=== PATIENT | female | born 1990 | race Caucasian/White ===

== ENCOUNTER 2020-10-16 20:44 | Emergency (ER) | payer SELFPAY ==
[2020-10-16 20:45] VITALS: BP 140/99; PULSE 97; RESP 20; TEMP 36.8; O2SAT 98; BMI 52.3
--- NOTE | 2020-10-16 20:55 | XRR_ITS ---
PROCEDURE INFORMATION: Exam: XR Left Ankle Exam date and time: 10/16/2020 8:55 PM Age: 30 years old Clinical indication: Pain; Ankle; Left; Additional info: Injury TECHNIQUE: Imaging protocol: XR Left ankle. Views: 3 or more views. Total images: 3 COMPARISON: No relevant prior studies available. FINDINGS: Bones/joints: Minimally displaced transverse fractures through the neck of the 2nd, 3rd, and 4th distal metatarsals left foot with associated mild fibular angulation. Small avulsion fracture fragment head of the 4th metatarsal fibular aspect. Minimally displaced spiral fracture lateral malleolus. Ankle mortise appears intact. No visible distal left tibia fracture. Soft tissues: Soft tissue swelling. XR/XR ankle LT min 3V* [id number] IMPRESSION: 1. Fractures of the 2nd, 3rd, and 4th metatarsals as detailed in text above. 2. Minimally displaced spiral fracture lateral malleolus.
--- NOTE | 2020-10-16 20:55 | XRR_ITS ---
PROCEDURE INFORMATION: Exam: XR Left Foot Exam date and time: 10/16/2020 8:55 PM Age: 30 years old Clinical indication: Pain; Foot; Left; Additional info: Fall TECHNIQUE: Imaging protocol: XR Left foot. Views: 3 or more views. Total images: 3 COMPARISON: No relevant prior studies available. FINDINGS: Bones/joints: Minimally displaced transverse fractures through the neck of the 2nd, 3rd, and 4th distal metatarsals left foot with associated mild fibular angulation. Small avulsion fracture fragment head of the 4th metatarsal fibular aspect. Minimally displaced spiral fracture lateral malleolus. Soft tissues: Soft tissue swelling. XR/XR foot LT min 3V* [id number] IMPRESSION: 1. Fractures of the 2nd, 3rd, and 4th metatarsals as detailed in text above. 2. Minimally displaced spiral fracture lateral malleolus.
--- NOTE | 2020-10-16 20:58 | ED_ITS ---
HPI - Extremity Problem General: Chief complaint: Extremity Injury, Lower Stated complaint: LLE INJURY Time Seen by Provider: 10/16/20 20:53 Source: patient Mode of arrival: ambulatory Limitations: no limitations History of Present Illness: HPI Narrative: 30-year-old female who states she was walking outside and stepped in a hole there. She twisted her left ankle when this happened has had swelling and severe ankle pain since then. She rates her pain a 8 out of 10 and states that she is unable to put any weight on it. She denies any knee pain. Denies any her head denies any neck pain. Associated symptoms: Deny chest pain, fever(s) or rash Review of Systems Const: Denies: fever(s), chills, body aches or change in appetite Eyes: Denies: blurry vision or eye discomfort ENMT: Denies: throat pain or dental pain Card: Denies: chest pain Resp: Denies: dyspnea GI: Denies: abdominal pain, nausea, vomiting or diarrhea : Denies: dysuria Musc: Reports: extremity pain Skin/Breast: Denies: rash Neuro: Denies: headache(s) Psych: Denies: depression Daren/Lymph: Denies: easy bruising All/Imm: Denies: urticaria Physical Exam Const: COMMON NORMALS: no acute distress, patient oriented x3 and healthy appearing HENMT: COMMON NORMALS: normocephalic and atraumatic HEAD & SCALP: normocephalic and atraumatic Eye: COMMON NORMALS: Equal, round and reactive pupils present and EOMs intact bilaterally PUPIL: Yes Equal, round and reactive pupils present Neck/C-Spine: COMMON NORMALS: full ROM and supple Chest: COMMONS NORMALS: normal inspection of the chest and normal palpation of entire chest wall Resp: COMMON NORMALS: normal respiratory effort, No retractions, No use of accessory muscles and clear to auscultation bilaterally AUSCULTATION: clear to auscultation bilaterally Cardio: COMMON NORMALS: regular rate, regular rhythm and No murmurs present (Cardio) RATE: regular rate RHYTHM: regular rhythm GI: COMMON NORMALS: Normal to inspection, nondistended, normoactive bowel sounds present, Soft to palpation, non-tender and no masses PALPATION: Yes Soft to palpation Extremity: NARRATIVE EXTREMITY EXAM: Tenderness and swelling to left lateral ankle Neuro: COMMON NORMALS: patient oriented x3, moves all extremities and no focal motor deficits Psych: COMMON NORMALS: mental status grossly normal, Normal thought process present and cooperative THOUGHT PROCESS: Normal thought process present Skin: COMMON NORMALS: no rashes or lesions noted and no wounds GENERAL SKIN EXAM: no rashes or lesions noted Course Vital Signs: Vital signs: Vital Signs Temperature 98.3 F 10/16/20 20:45 Pulse Rate 97 10/16/20 20:45 Respiratory Rate 20 H 10/16/20 20:45 Blood Pressure 140/99 10/16/20 20:45 Pulse Oximetry 98 10/16/20 20:45 MDM - Extremity (Nontraumatic) MDM Narrative: Medical decision making narrative: Patient presents here with fracture to her foot along with ankle. Patient placed in a splint and is to use crutches as well. She is to be nonweightbearing. She is to follow-up with orthopedics. We will write her tramadol for home and she is stable for discharge. Imaging Data^: xr ankle l: Attestation: I personally reviewed and interpreted this imaging study as follows: My impression: distula fibula fx xr foot L: Attestation: I personally reviewed and interpreted this imaging study as follows: My impression: fracture to 2-4 distal metatarsals Discharge Plan Discharge Patient Disposition: Home Clinical Impression: Fracture of distal end of fibula Qualifiers: Encounter type: initial encounter Fracture type: closed Fracture morphology: unspecified fracture morphology Laterality: left Qualified Code(s): S82.832A - Other fracture of upper and lower end of left fibula, initial encounter for closed fracture Foot fracture, left Qualifiers: Encounter type: initial encounter Fracture type: closed Qualified Code(s): S92.902A - Unspecified fracture of left foot, initial encounter for closed fracture Condition: Stable Prescriptions: New tramadol 50 mg tablet 50 mg PO Q8H PRN (Reason: pain) Qty: 20 RF: 0 Discharge Orders: Discharge ED (Routine); Ordered 10/16/20 Ordered By: Song Healy Referrals: Shiraz Lyons MD [Physician] - 1-3 days Discharge Diet: Advance as tolerated Discharge Activity: Resume usual activity Patient Instructions: Ankle Fracture (ED), Foot Fracture in Adults (ED) Coding Level of Care Code ED [employer] Supervisor for g Fwd Exam Comprehensive
[2020-10-16 22:02] VITALS: RESP 18
[2020-10-16] MEDS: HYDROmorphone 1 mg/mL INJ 1 mL 0.5 MG IM (22:02)
[2020-10-16 22:04] VITALS: BP 150/97; PULSE 92; RESP 18; O2SAT 100
[2020-10-16 22:58] VITALS: BP 151/101; PULSE 92; RESP 18; O2SAT 96
--- NOTE | 2020-10-18 09:04 | PC.SOCIAL ---
Notified Mallory at Ortho regarding referral from Dr Healy for ankle and foot fx for [place]. She retrieved information and will call patient once reviewed for appointment.
--- NOTE | 2020-10-30 07:43 | DCPLANNER ---
Patient had a follow up appointment scheduled for 10.17.20 at [facility] with Dr. Lyons - patient did attend appointment.
== END 2020-10-16 22:49 | disposition home or self-care (01) ==
PROVIDERS: Emergency Provider Emergency Medicine
DX: S82.832A Other fracture of upper and lower end of left fibula, initial encounter for closed fracture (principal); S92.325A Nondisplaced fracture of second metatarsal bone, left foot, initial encounter for closed fracture; S92.335A Nondisplaced fracture of third metatarsal bone, left foot, initial encounter for closed fracture; S92.345A Nondisplaced fracture of fourth metatarsal bone, left foot, initial encounter for closed fracture; X50.1XXA Overexertion from prolonged static or awkward postures, initial encounter
CPT/HCPCS: 29515; 73610; 73630; 96372; 99283; E0114; J1170

== ENCOUNTER 2020-10-17 10:28 | Outpatient (CLI) | payer SELFPAY | END 2020-10-17 10:29 | disposition home or self-care (01) | LOC: SPT 10-18 10:29 | PROVIDERS: Visit Provider Orthopaedic Surgery | DX: Z46.89 Encounter for fitting and adjustment of other specified devices (principal); S92.342D Displaced fracture of fourth metatarsal bone, left foot, subsequent encounter for fracture with routine healing; S92.332D Displaced fracture of third metatarsal bone, left foot, subsequent encounter for fracture with routine healing; S92.322D Displaced fracture of second metatarsal bone, left foot, subsequent encounter for fracture with routine healing; S82.832D Other fracture of upper and lower end of left fibula, subsequent encounter for closed fracture with routine healing; X58.XXXD Exposure to other specified factors, subsequent encounter | CPT/HCPCS: 97760; L4361 ==

== ENCOUNTER → 2020-10-17 14:19 | Outpatient (BNVA) | payer SELFPAY | PROVIDERS: Referring Provider Emergency Medicine; Visit Provider Orthopaedic Surgery | DX: S82.832A Other fracture of upper and lower end of left fibula, initial encounter for closed fracture (principal); X58.XXXA Exposure to other specified factors, initial encounter | CPT/HCPCS: 73600 ==

== ENCOUNTER → 2020-10-24 13:23 | Outpatient (BNVA) | payer SELFPAY | PROVIDERS: Visit Provider Orthopaedic Surgery | DX: S82.832A Other fracture of upper and lower end of left fibula, initial encounter for closed fracture (principal); S92.322A Displaced fracture of second metatarsal bone, left foot, initial encounter for closed fracture; S92.332A Displaced fracture of third metatarsal bone, left foot, initial encounter for closed fracture; S92.342A Displaced fracture of fourth metatarsal bone, left foot, initial encounter for closed fracture; X58.XXXA Exposure to other specified factors, initial encounter | CPT/HCPCS: 73610; 73630 ==

== ENCOUNTER → 2020-11-23 10:19 | Outpatient (BNVA) | payer MEDICAID, SELFPAY | PROVIDERS: Visit Provider Orthopaedic Surgery | DX: S92.332A Displaced fracture of third metatarsal bone, left foot, initial encounter for closed fracture (principal); S92.342A Displaced fracture of fourth metatarsal bone, left foot, initial encounter for closed fracture; S92.322A Displaced fracture of second metatarsal bone, left foot, initial encounter for closed fracture; S82.832A Other fracture of upper and lower end of left fibula, initial encounter for closed fracture; X58.XXXA Exposure to other specified factors, initial encounter | CPT/HCPCS: 73610; 73630 ==

== ENCOUNTER → 2020-12-18 10:14 | Outpatient (BNVA) | payer MEDICAID, SELFPAY | PROVIDERS: Visit Provider Orthopaedic Surgery | DX: S92.332A Displaced fracture of third metatarsal bone, left foot, initial encounter for closed fracture (principal); S92.342A Displaced fracture of fourth metatarsal bone, left foot, initial encounter for closed fracture; S92.322A Displaced fracture of second metatarsal bone, left foot, initial encounter for closed fracture; S82.832A Other fracture of upper and lower end of left fibula, initial encounter for closed fracture; X58.XXXA Exposure to other specified factors, initial encounter | CPT/HCPCS: 73610; 73630 ==

== ENCOUNTER → 2021-01-09 09:22 | Outpatient (BNVA) | payer MEDICAID, SELFPAY | PROVIDERS: Visit Provider Orthopaedic Surgery | DX: S92.342A Displaced fracture of fourth metatarsal bone, left foot, initial encounter for closed fracture (principal); S92.332A Displaced fracture of third metatarsal bone, left foot, initial encounter for closed fracture; S92.322A Displaced fracture of second metatarsal bone, left foot, initial encounter for closed fracture; X58.XXXA Exposure to other specified factors, initial encounter | CPT/HCPCS: 73610; 73630 ==

== ENCOUNTER 2021-06-18 11:26 | Outpatient (CLI) | payer BC, SELFPAY ==
--- NOTE | 2021-06-18 11:35 | XR_ITS ---
WS: [id number] Exam: XR knee LT 4V [id number] Date/Time of Exam: 06/18/2021 11:35 AM Reason For Exam: PAIN IN L KNEE No fracture or dislocation noted. Articular relationships are intact. No joint effusion. XR/XR knee LT 4V [id number] Impression: Normal left knee Kellgren-Werner Classification:
--- NOTE | 2021-06-18 11:35 | XR_ITS ---
WS: [id number] Exam: XR ankle LT min 3V* [id number] Date/Time of Exam: 06/18/2021 11:35 AM Reason For Exam: L ANKLE PAIN/FX OF L LOWER LEG Comparison 01/09/2021 No acute fracture or dislocation. Healed fracture of the lower fibula noted. The ankle mortise appear s normal. Normal soft tissues. XR/XR ankle LT min 3V* [id number] IMPRESSION: 1. Healed fracture of the lower fibula in anatomic position.
== END 2021-06-18 11:27 | disposition home or self-care (01) ==
LOC: RAD 11:34
PROVIDERS: PCP Family Medicine; Visit Provider Family Medicine
DX: M25.562 Pain in left knee (principal); M25.572 Pain in left ankle and joints of left foot
CPT/HCPCS: 73564; 73610

== ENCOUNTER 2021-10-24 06:00 | Outpatient (RCR) | payer OTHER, SELFPAY | END 2021-10-24 23:55 | disposition home or self-care (01) | LOC: SPT 06:00 | PROVIDERS: PCP Family Medicine; Referring Provider Family Medicine; Visit Provider Family Medicine | DX: S39.012D Strain of muscle, fascia and tendon of lower back, subsequent encounter (principal); X58.XXXD Exposure to other specified factors, subsequent encounter | CPT/HCPCS: 97161 ==

== ENCOUNTER 2021-10-25 06:00 | Outpatient (RCR) | payer OTHER, SELFPAY | END 2021-11-24 23:59 | disposition home or self-care (01) | LOC: SPT 06:00 | PROVIDERS: PCP Family Medicine; Referring Provider Family Medicine; Visit Provider Family Medicine | DX: S39.012A Strain of muscle, fascia and tendon of lower back, initial encounter (principal); X58.XXXA Exposure to other specified factors, initial encounter | CPT/HCPCS: 97110 ==

== ENCOUNTER 2021-11-07 14:28 | Outpatient (CLI) | payer OTHER, SELFPAY ==
--- NOTE | 2021-11-07 15:00 | CT_ITS ---
WS: [id number] CT LUMBAR SPINE, noncontrast. HISTORY: continued pain w rest and analgesics from low back injury TECHNIQUE: Contiguous 2.5 mm axial imaging are performed. Sagittal and coronal reformats are submitte d and reviewed. All CT scans at [facility] use at least one of these dose optimization techni ques: automated exposure control; mA and/or kV adjustment per patient size (includes targeted exams w here dose is matched to clinical indication); or iterative reconstruction. IV contrast: None DLP: 1466.47 mGy.cm COMPARISON: None available. Posterior lumbar alignment is normal. No fractures. Disc spaces are well-maintained. No pars defects. L1-2: Normal. L2-3: Normal. L3-4: Mild annular disc bulging. Mild ligamentum flavum hypertrophy. Very mild disc encroachment into the foramina. No high-grade stenosis. L4-5: Moderate annular disc bulge with a central disc protrusion contacting the ventral thecal sac. M ild bilateral foraminal stenosis. L5-S1: Mild disc bulging there is a very tiny LEFT foraminal disc protrusion which may be contacting the LEFT L5 nerve root. Mild LEFT foraminal stenosis. SI joints are normal. No retroperitoneal abnormality identified. CT/CT lumbar spine wo con* [id number] IMPRESSION: Accident LEFT L5 nerve root. Very mild LEFT foraminal narrowing. 1. No lumbar spine fracture or significant disc disease. 2. Mild disc bulging with a central protrusion at L4-5 resulting in very mild foraminal stenosis. 3. Mild foraminal stenosis at L3-4 due to disc disease predominantly. 4. Very small LEFT foraminal disc protrusion causing mild stenosis and does ap pear to be contacting the LEFT L5 nerve root.
== END 2021-11-07 14:29 | disposition home or self-care (01) ==
LOC: RAD 14:28
PROVIDERS: PCP Family Medicine; Visit Provider Family Medicine
DX: G89.29 Other chronic pain (principal); M51.16 Intervertebral disc disorders with radiculopathy, lumbar region; M79.605 Pain in left leg; S39.012A Strain of muscle, fascia and tendon of lower back, initial encounter; M51.26 Other intervertebral disc displacement, lumbar region; M48.061 Spinal stenosis, lumbar region without neurogenic claudication
CPT/HCPCS: 72131

== ENCOUNTER → 2021-11-14 09:47 | Outpatient (BNVA) | payer OTHER, SELFPAY | PROVIDERS: PCP Family Medicine; Referring Provider Family Medicine; Visit Provider Orthopaedic Surgery | DX: M51.16 Intervertebral disc disorders with radiculopathy, lumbar region (principal); M54.50 Low back pain, unspecified | CPT/HCPCS: 72110 ==

== ENCOUNTER 2021-11-27 08:44 | Outpatient (CLI) | payer OTHER, SELFPAY ==
--- NOTE | 2021-11-27 08:45 | MR_ITS ---
WS: [id number] MRI LUMBAR SPINE NONCONTRAST HISTORY: M51.16 - Intervertebral disc disorders with radiculopathy... COMPARISON: None available. TECHNIQUE: Sagittal and axial multisequence imaging is submitted. Normal lumbar alignment with no compression fractures or marrow edema. Mild disc desiccation at L4-5. Vertebral body heights are normal. No fracture or marrow edema. Conus terminates normally at L1. Mild degenerative disc disease at T10-11 no cord compression. L1-L2: Normal. L2-L3: No stenosis. Mild ligamentum flavum and facet arthritis. L3-L4: Mild ligamentum flavum and facet arthritis. No stenosis. L4-L5: Mild annular disc bulge with a small central disc protrusion. Disc protrusion does not contact the nerve roots. Mild ligamentum flavum and facet arthritis. There is very mild narrowing of the dereje ral foramen. L5-S1: Very small central disc protrusion. Mild facet joint arthritis. Mild bilateral foraminal narro wing. Slightly greater encroachment upon the proximal LEFT exiting L5 nerve root. The recently descri bed possible LEFT foraminal disc protrusion that was small and described on the CT of 11/07/2021 is no t evident by MRI. Visualized paravertebral soft tissues are negative. MR/MR lumbar spine wo con* [id number] IMPRESSION: 1. No high-grade central or foraminal stenosis. 2. Small central disc protrusion with annular disc bulge at L4-5. No contact o n the nerve roots. 3. Mild bilateral foraminal narrowing at L4-5 and L5-S1. The most significant encroachment is upon the exiting proximal LEFT L5 nerve root. 4. No fractures.
== END 2021-11-27 08:45 | disposition home or self-care (01) ==
LOC: RAD 08:44
PROVIDERS: PCP Family Medicine; Visit Provider Orthopaedic Surgery
DX: M51.16 Intervertebral disc disorders with radiculopathy, lumbar region (principal); S39.012A Strain of muscle, fascia and tendon of lower back, initial encounter; X58.XXXA Exposure to other specified factors, initial encounter; M51.26 Other intervertebral disc displacement, lumbar region
CPT/HCPCS: 72148

== ENCOUNTER 2022-03-13 18:41 | Emergency (ER) | payer OTHER, BC, MEDICAID, SELFPAY ==
--- NOTE | 2022-03-13 18:45 | XRR_ITS ---
PROCEDURE INFORMATION: Exam: XR Right Foot Exam date and time: 03/13/2022 7:06 PM Age: 31 years old Clinical indication: Pain; Foot; Right; Additional info: Injury TECHNIQUE: Imaging protocol: Radiologic exam of the Right foot. Views: 3 or more views. COMPARISON: No relevant prior studies available. FINDINGS: Bones/joints: Normal. Soft tissues: Normal. XR/XR foot RT min 3V* [id number] IMPRESSION: No acute findings.
[2022-03-13 19:13] VITALS: BMI 52.7
[2022-03-13 19:18] VITALS: BP 147/89; PULSE 93; RESP 16; TEMP 36.6; O2SAT 98
--- NOTE | 2022-03-13 19:24 | XRR_ITS ---
PROCEDURE INFORMATION: Exam: XR Right Ankle Exam date and time: 03/13/2022 7:32 PM Age: 31 years old Clinical indication: Pain; Ankle; Right; Additional info: Injury TECHNIQUE: Imaging protocol: Radiologic exam of the Right ankle. Views: 3 or more views. COMPARISON: CR (LOW EXM, ) 03/13/2022 7:06 PM FINDINGS: Bones/joints: Normal. Soft tissues: Soft tissue swelling around the ankle. XR/XR ankle RT min 3V* [id number] IMPRESSION: Negative for acute osseous injury.
--- NOTE | 2022-03-13 19:29 | ED_ITS ---
HPI - Extremity Problem General: Chief complaint: Extremity Injury, Lower Stated complaint: Right foot injury Time Seen by Provider: 03/13/22 19:05 Mode of arrival: ambulatory Limitations: no limitations History of Present Illness: 31-year-old female who states that she had rolled her right ankle this morning. She states that she is got swelling to right lateral ankle along with pain in that ankle some slight pain in her foot states she is unable to bear any weight her pains improved with rest rates her pain currently a 4 out of 10 denies any other injury denies any pain. Associated symptoms: Deny chest pain, fever(s) or rash Review of Systems Const: Denies: fever(s), chills, body aches or change in appetite Eyes: Denies: blurry vision or eye discomfort ENMT: Denies: throat pain or dental pain Card: Denies: chest pain Resp: Denies: dyspnea GI: Denies: abdominal pain, nausea, vomiting or diarrhea : Denies: dysuria Musc: Reports: extremity pain Skin/Breast: Denies: rash Neuro: Denies: headache(s) Psych: Denies: depression Daren/Lymph: Denies: easy bruising All/Imm: Denies: urticaria PFSH ED PFSH: Medical History Ankle pain Chronic pain of left lower extremity Fracture of fourth metatarsal bone of left foot Fracture of third metatarsal bone of left foot Low back strain Psychiatric care Social History Smoking and tobacco status: current every day smoker cigarettes Packs smoked per day: 0.5 Years cigarettes smoked: 16 Quit status (tobacco): has tried quititng Number of times tried to quit tobacco: 5 Second hand smoke exposure: Yes Smoking risk assessment/counseling performed?: No Alcohol intake: current Alcohol intake frequency: holidays/special occasions only Alcohol type: other Desire information about alcohol rehabilitation?: No Counseling given: No Desire information about substance/drug rehabilitation?: No Counseling given: No Female Reproductive History: Date of last menstrual period: 03/12/22 Physical Exam Const: COMMON NORMALS: no acute distress, patient oriented x3 and healthy appearing HENMT: COMMON NORMALS: normocephalic and atraumatic HEAD & SCALP: normocephalic and atraumatic Eye: COMMON NORMALS: conjunctivae normal CONJUNCTIVA: Yes conjunctivae normal Neck/C-Spine: COMMON NORMALS: full ROM and supple Chest: COMMONS NORMALS: normal inspection of the chest Resp: COMMON NORMALS: normal respiratory effort Cardio: COMMON NORMALS: regular rate, regular rhythm and No murmurs present (Cardio) RATE: regular rate RHYTHM: regular rhythm GI: INSPECTION: Yes normal to inspection Extremity: NARRATIVE EXTREMITY EXAM: Tenderness over right lateral ankle with swelling distal pulses intact no obvious deformity Neuro: COMMON NORMALS: patient oriented x3, moves all extremities and no focal motor deficits Psych: COMMON NORMALS: mental status grossly normal, Normal thought process present and cooperative THOUGHT PROCESS: Normal thought process present Skin: COMMON NORMALS: no rashes or lesions noted and no wounds GENERAL SKIN EXAM: no rashes or lesions noted Course Vital Signs: Vital signs: Vital Signs Temperature 97.9 F 03/13/22 19:18 Pulse Rate 93 03/13/22 19:18 Respiratory Rate 16 03/13/22 19:18 Blood Pressure 147/89 03/13/22 19:18 Pulse Oximetry 98 03/13/22 19:18 Oxygen Delivery Me thod 03/13/22 19:18 MDM - Extremity (Nontraumatic) Medical Decision Making Patient presents here with an ankle sprain x-ray shows no signs of fracture we will immobilize give her crutches have her follow-up with podiatry she is return if worsening she understands agrees to plan. Lab Data Radiology Impressions Foot X-Ray 03/13/22 18:45 IMPRESSION: No acute findings. Discharge Plan Discharge Patient Disposition: Home Clinical Impression: Ankle sprain and strain Condition: Stable Prescriptions: New Naprosyn 500 mg tablet 500 mg PO BID PRN (Reason: pain) Qty: 20 0RF No Action medroxyprogesterone [Depo-SubQ provera 104] SUBCUT .q 3 months gabapentin 300 mg capsule See Rx Instructions .ROUTE .COMPLEX Qty: 60 1RF Dose Instruction: TAKE ONE CAPSULE BY MOUTH TWICE DAILY FOR chronic pain Rx Instructions: TAKE ONE CAPSULE BY MOUTH TWICE DAILY FOR chronic pain bupivacaine (PF) 0.25 % (2.5 mg/mL) solution 2 ml Infiltration ONCE Qty: 1 0RF dexamethasone sodium phos (PF) 10 mg/mL solution 8 mg Infiltration ONCE Qty: 0.8 0RF acetaminophen [Tylenol Extra Strength] 500 mg tablet 1,000 mg PO Q6H PRN duloxetine 60 mg capsule,delayed release(DR/EC) 60 mg PO DAILY Qty: 60 2RF Rx Instructions: To be taken with 30 mg for total of 90 mg. trazodone 50 mg tablet 100 mg PO .HS PRN (Reason: insomnia) Qty: 60 2RF duloxetine 30 mg capsule,delayed release(DR/EC) 30 mg PO DAILY Qty: 30 2RF ibuprofen 200 mg tablet 800 mg PO DAILY PRN bupivacaine (PF) 0.25 % (2.5 mg/mL) solution 2 ml Infiltration ONCE Qty: 1 0RF dexamethasone sodium phos (PF) 10 mg/mL solution 8 mg Infiltration ONCE Qty: 0.8 0RF Discharge Orders: Discharge ED (Routine); Ordered 03/13/22 Ordered By: Song Healy Referrals: Miladis Diaz DO [Primary Care Provider] - Sriram Zamudio DPM [Physician] - 1-3 days Discharge Diet: Advance as tolerated Discharge Activity: Use walker/crutches as instructed Patient Instructions: Ankle Sprain (ED) Coding Level of Care Code ED [employer] Farmer for Yeisong Fwd Exam Comprehensive
[2022-03-13] MEDS: HYDROcodone-acetaminophen 5-325 mg Tablet 1 TAB PO (19:47)
--- NOTE | 2022-03-14 09:04 | PC.SOCIAL ---
Addendum entered by Majo Leggett 04/08/22 12:08: Patient had a follow up appointment with ortho - patient did attend appointment. Original Note: Ortho Referral Referral sent to ortho for scheduling. Clinic to contact patient with appt date/time.
== END 2022-03-13 20:06 | disposition home or self-care (01) ==
PROVIDERS: Emergency Provider Emergency Medicine; PCP Family Medicine
DX: S93.401A Sprain of unspecified ligament of right ankle, initial encounter (principal); S96.911A Strain of unspecified muscle and tendon at ankle and foot level, right foot, initial encounter; X50.1XXA Overexertion from prolonged static or awkward postures, initial encounter; F17.210 Nicotine dependence, cigarettes, uncomplicated
CPT/HCPCS: 29515; 73610; 73630; 99283; E0114

== ENCOUNTER 2022-03-18 15:49 | Outpatient (CLI) | payer OTHER, BC, MEDICAID, SELFPAY | END 2022-03-18 15:50 | disposition home or self-care (01) | LOC: SPT 15:49 | PROVIDERS: PCP Family Medicine; Visit Provider Podiatrist Foot & Ankle Surgery | DX: Z46.89 Encounter for fitting and adjustment of other specified devices (principal); S99.911D Unspecified injury of right ankle, subsequent encounter; X58.XXXD Exposure to other specified factors, subsequent encounter | CPT/HCPCS: 97760; L4361 ==

== ENCOUNTER 2022-04-08 15:02 | Outpatient (CLI) | payer OTHER, BC, MEDICAID, SELFPAY | END 2022-04-08 15:03 | disposition home or self-care (01) | LOC: SPT 15:03 | PROVIDERS: PCP Family Medicine; Visit Provider Podiatrist Foot & Ankle Surgery | DX: Z46.89 Encounter for fitting and adjustment of other specified devices (principal); M25.571 Pain in right ankle and joints of right foot; M76.71 Peroneal tendinitis, right leg; S93.401D Sprain of unspecified ligament of right ankle, subsequent encounter; X58.XXXD Exposure to other specified factors, subsequent encounter | CPT/HCPCS: 97760; L1902 ==

== ENCOUNTER 2022-05-29 07:50 | Outpatient (CLI) | payer OTHER, BC, MEDICAID, SELFPAY ==
--- NOTE | 2022-05-29 08:00 | MR_ITS ---
WS: [id number] EXAMINATION: MR ankle RT wo/w con [id number] ORDER DATE: 05/29/2022 8:12 AM COMPARISON: None. HISTORY: right ankle pain CONTRAST: None. TECHNIQUE: Axial proton density fat sat, axial T1, sagittal proton density, sagittal STIR, coronal T2 fat sat, and coronal T1 sequences performed. After contrast, axial T1 fat sat, coronal T1 fat sat, and sagittal T1 fat sat were performed. FINDINGS: Normal anatomic alignment. Normal ankle mortise. Talar dome is normal in appearance. No evidence of c ontusion or AVN talar dome. Normal calcaneus. Mild soft tissue edema about the lateral malleolus. Eric ma involving the tip of the lateral malleolus compatible with bone marrow contusion. No visualized di splaced or avulsed fragments. Suspected tiny nondisplaced vertically oriented hairline fracture with tiny visualized fracture line. Small amount of tenosynovitis along the peroneal tendons appear intact . Small amount of tendinopathy along the peroneal longus at the peroneal tubercle. Small amount of te nosynovitis along the tibialis posterior. Normal medial malleolus. Deltoid ligament appears intact. ATF appears intact. No widening of the synd esmosis. Tibial plafond is normal. No osteochondral defects. Distal Achilles is normal in appearance. 5th metatarsal base is normal in appearance. Normal navicula r and cuneiforms. Small joint effusion. MR/MR ankle RT wo/w con [id number] IMPRESSION: 1. Soft tissue edema overlying the lateral malleolus with bone marrow edema an d suspected tiny nondisplaced hairline fracture. No avulsion fractures. 2. Tenosynovitis along the traversing peroneal tendons. Small amount of tendin opathy in the peroneal longus. 3. Normal deltoid ligament and ATF. 4. Small joint effusion.
[2022-05-29] MEDS: gadobenate dimeglumine 20 mL vial IV (08:53)
== END 2022-05-29 07:51 | disposition home or self-care (01) ==
LOC: RAD 07:51
PROVIDERS: PCP Family Medicine; Visit Provider Podiatrist Foot & Ankle Surgery
DX: M76.71 Peroneal tendinitis, right leg (principal); M25.571 Pain in right ankle and joints of right foot
CPT/HCPCS: 73723; A9577

== ENCOUNTER 2022-07-14 16:26 | Emergency (ER) | payer BC, MEDICAID, SELFPAY ==
[2022-07-14 16:57] VITALS: BP 159/87; PULSE 79; RESP 16; TEMP 36.7; O2SAT 97; BMI 53.2
--- NOTE | 2022-07-14 17:45 | USR_ITS ---
PROCEDURE INFORMATION: Exam: US Pelvis Complete, Transabdominal and US Pelvis, Transvaginal Exam date and time: 07/14/2022 6:09 PM Age: 31 years old Clinical indication: Pelvic pain; Patient HX: Heavy vaginal bleeding with bilateral pelvic cramping x 3-4 days. Lmp = 06/30/22; Additional info: Heavy vaginal bleeding and cramping pain TECHNIQUE: Imaging protocol: Real-time complete transabdominal and transvaginal pelvic ultrasound with image documentation. Transvaginal imaging was used for better evaluation of the endometrium, adnexa, and/or cervix. COMPARISON: CT lumbar spine wo con* [id number] 11/07/2021 3:36 PM FINDINGS: Uterus: The uterus measures 6.6 x 4.0 x 4.4 cm. No myometrial abnormality. The endometrium is unremarkable. Endometrium measures 3.2 mm. Cervix: Fluid in the cervical canal. Right ovary/adnexa: The right ovary measures 2.5 x 3.0 x 2.0 cm. There is flow in the right ovary on Doppler imaging. Dominant follicle in the right ovary measuring 1.4 cm. Left ovary/adnexa: The left ovary measures 3.1 x 1.8 x 3.8 cm. There is flow in the left ovary on Doppler imaging. Dominant follicle in the left ovary measuring 2.0 cm. Dominant follicle in the left ovary. Intraperitoneal space: No free fluid in the pelvis. Urinary bladder: The bladder is incompletely filled, which can limit evaluation. No focal abnormality in the bladder however. US/US pelvic complete* [id number] IMPRESSION: 1. Fluid in the cervical canal. 2. Dominant follicles in both right and left ovaries.
--- NOTE | 2022-07-14 17:47 | W.ED.FEMALGU ---
HPI - Female Genitourinary General: Chief complaint: Vaginal Bleeding Stated complaint: heavy vaginal bleeding Time Seen by Provider: 07/14/22 17:27 History of Present Illness: Patient is a 31-year-old female who comes to the ED with vaginal bleeding and abdominal cramping. Symptoms started approximately 2 days ago. This is a chronic problem for patient. She has a history of abnormal menstrual periods and has been working with her PCP for over 10 years to try and help make them more regular. She is currently on control. She states that she will have multiple periods in a month sometimes and then go months without a menstrual period or have vaginal bleeding for weeks. Today patient says her abdominal cramping pain is in her lower abdomen and she rates it a 9 out of 10. She also is having heavy bleeding today and states she goes through 1-2 heavy pads every hour. She also endorses having nausea, lightheadedness, headache and feels dehydrated. Patient states that she would really like a referral to a women's health specialist denies any fevers, dysuria or emesis. Associated symptoms: Reports headache(s) and nausea; Deny abdominal pain Date of Last Menstrual Period: 06/30/22 Review of Systems Const: Denies: fever(s), chills or fatigue Eyes: Denies: change in vision or eye discomfort ENMT: Denies: throat pain, odynophagia, nasal discharge or nasal congestion Card: Reports: lightheadedness; Denies: chest pain, palpitations, edema, swelling of feet/ankles, dyspnea on exertion or orthopnea Resp: Denies: dyspnea, productive cough or non-productive cough GI: Reports: nausea and GI cramping; Denies: abdominal pain, vomiting, diarrhea, constipation or hematochezia : Reports: vaginal bleeding and pelvic pain; Denies: flank pain, dysuria or hematuria Musc: Denies: neck pain, back pain or extremity swelling Skin/Breast: Denies: rash or new lesions Neuro: Reports: headache(s); Denies: numbness in extremities or weakness in extremities PFSH ED PFSH: Medical History Ankle pain Chronic pain of left lower extremity Fracture of fourth metatarsal bone of left foot Fracture of third metatarsal bone of left foot Low back strain Psychiatric care Social History Smoking and tobacco status: current every day smoker cigarettes Packs smoked per day: 0.5 Years cigarettes smoked: 16 Quit status (tobacco): has tried quititng Number of times tried to quit tobacco: 5 Second hand smoke exposure: Yes Smoking risk assessment/counseling performed?: No Alcohol intake: current Alcohol intake frequency: holidays/special occasions only Alcohol type: other Desire information about alcohol rehabilitation?: No Counseling given: No Desire information about substance/drug rehabilitation?: No Counseling given: No Female Reproductive History: Date of last menstrual period: 06/30/22 Physical Exam Const: COMMON NORMALS: no acute distress, patient oriented x3 and alert GENERAL APPEARANCE: cooperative HENMT: COMMON NORMALS: normocephalic HEAD & SCALP: normocephalic MOUTH: Normal oral and palatal mucosa present THROAT: posterior oropharynx normal and uvula midline Neck/C-Spine: COMMON NORMALS: supple GENERAL: Yes normal visual inspection Resp: COMMON NORMALS: normal respiratory effort, No retractions, No use of accessory muscles and clear to auscultation bilaterally AUSCULTATION: clear to auscultation bilaterally Cardio: COMMON NORMALS: regular rate, regular rhythm, S1 normal heart sound present, S2 normal heart sound present, No gallops present (Cardio), No clicks present (Cardio), No murmurs present (Cardio) and Peripheral pulses 2+ throughout RATE: regular rate RHYTHM: regular rhythm HEART SOUNDS: S1 normal heart sound present and S2 normal heart sound present PERIPHERAL PULSES: Peripheral pulses 2+ throughout GI: COMMON NORMALS: Normal to inspection, nondistended, normoactive bowel sounds present, Soft to palpation, non-tender and no masses PALPATION: Yes Soft to palpation : COMMON NORMALS: Yes no CVA tenderness BLADDER/KIDNEY EXAM: Yes no CVA tenderness Back/Pelvis: COMMON NORMALS: no CVA tenderness Extremity: COMMON NORMALS: normal to inspection Neuro: COMMON NORMALS: patient oriented x3 SENSORIUM/ORIENTATION: Yes alert GAIT: Yes Normal gait present Skin: GENERAL SKIN EXAM: dry skin Course Vital Signs: Vital signs: Vital Signs Temperature 98.0 F 07/14/22 16:57 Pulse Rate 79 07/14/22 16:57 Respiratory Rate 16 07/14/22 16:57 Blood Pressure 159/87 07/14/22 16:57 Pulse Oximetry 97 03/20/23 16:57 Oxygen Delivery Me thod 07/14/22 16:57 MDM - Female Medical Decision Making Patient is a 31-year-old female comes to the ED with heavy vaginal bleeding. This is a chronic issue for patient and she has been dealing with irregular periods with heavy bleeding for the past 10+ years. Her main reason for coming here to the ED was to get a referral to SPEECH THERAPIST TECHNICIAN specialist. vitals stable. Patient appears nontoxic in no acute distress. Exam is benign. Patient's labs are unremarkable and her hemoglobin is 14.8. hCG negative. Pelvic ultrasound was unremarkable. Patient was stable for discharge home and diagnosed with menorrhagia. I placed order with case management for patient referred to an SPEECH THERAPIST TECHNICIAN specialist for follow-up. Return to ED precautions given. Patient understood and agreed with plan. Lab Data I reviewed the patient's lab results. 07/14/22 17:30 07/14/22 17:30 Radiology Impressions Pelvis Ultrasound 07/14/22 17:45 IMPRESSION: 1. Fluid in the cervical canal. 2. Dominant follicles in both right and left ovaries. Laboratory Results WBC 10.0 10^3/uL (4.0-10.0) 07/14/22 17:30 RBC 4.99 10^6/uL (4.1-5.3) 07/14/22 17:30 Hgb 14.8 g/dL (11.5-15.3) 07/14/22 17:30 Hct 44.0 % (37.0-47.0) 07/14/22 17: MCV 88.2 fl (81-99) 07/14/22 17:30 MCH 29.7 pg (28.0-34.0) 07/14/22 17:30 MCHC 33.6 g/dL (30.0-36.0) 07/14/22 17:30 RDW 12.3 % (12.1-15.1) 07/14/22 17:30 Plt Count 365 10^3/cmm (130-400) 07/14/22 17:30 MPV 10.7 fL (7.4-10.4) H 07/14/22 17:30 Neut % (Auto) 64.0 % 07/14/22 17:30 Lymph % (Auto) 28.3 % 07/14/22 17:30 [place] % (Auto) 6.2 % 07/14/22 17:30 Eos % (Auto) 0.9 % 07/14/22 17:30 Baso % (Auto) 0.3 % 07/14/22 17:30 Neut # (Auto) 6.39 10^3/uL (1.8-7.7) 07/14/22 17:30 Lymph # (Auto) 2.8 10^3/uL (0.8-4.8) 07/14/22 17:30 [place] # (Auto) 0.6 10^3/uL (0.2-0.9) 07/14/22 17:30 Eos # (Auto) 0.1 10^3/uL (0.0-0.8) 07/14/22 17: Baso # (Auto) 0.0 10^3/uL (0.0-0.1) 07/14/22 17: Nucleated RBC % (auto) 0 % 07/14/22 17: Nucleated RBCs # 0.0 /100WBC 07/14/22 17:30 Sodium 140 mmol/L (136-145) 07/14/22 17:30 Potassium 4.0 mmol/L (3.5-5.1) 07/14/22 17:30 Chloride 104 mmol/L (98-107) 07/14/22 17:30 Carbon Dioxide 24 mmol/L (22-29) 07/14/22 17:30 Anion Gap 16.0 (5-19) 07/14/22 17:30 BUN 7 mg/dL (6-20) 07/14/22 17:30 Creatinine 0.7 mg/dL (0.5-0.9) 07/14/22 17:30 GFR Calculation 98.9 mL/min (90-130) 07/14/22 17:30 Glucose 88 mg/dL (65-115) 07/14/22 17: Calculated Osmolality 287 mOsm/kg (285-295) 07/14/22 17:30 Calcium 9.1 mg/dL (8.5-10.5) 07/14/22 17:30 Total Bilirubin 0.2 mg/dL (0.15-1.2) 07/14/22 17:30 AST 14 U/L (0-32) 07/14/22 17:30 ALT 19 U/L (0-33) 07/14/22 17:30 Alkaline Phosphatase 76 U/L (35-105) 07/14/22 17:30 Total Protein 7.3 g/dL (6.6-8.7) 07/14/22 17:30 Albumin 4.5 g/dL (3.5-5.2) 07/14/22 17:30 Globulin 2.8 g/dL (1.3-4.6) 07/14/22 17:30 HCG, Qual Negative (Negative) 07/14/22 17:30 Discharge Plan Discharge Patient Disposition: Home Clinical Impression: Menorrhagia with irregular cycle Condition: Stable Prescriptions: New ondansetron 4 mg tablet,disintegrating 4 mg PO Q8H PRN (Reason: nausea and vomiting) Qty: 12 0RF No Action medroxyprogesterone [Depo-SubQ provera 104] SUBCUT .q 3 months gabapentin 300 mg capsule See Rx Instructions .ROUTE .COMPLEX Qty: 60 1RF Dose Instruction: TAKE ONE CAPSULE BY MOUTH TWICE DAILY FOR chronic pain Rx Instructions: TAKE ONE CAPSULE BY MOUTH TWICE DAILY FOR chronic pain acetaminophen [Tylenol Extra Strength] 500 mg tablet 1,000 mg PO Q6H PRN duloxetine 60 mg capsule,delayed release(DR/EC) 60 mg PO DAILY Qty: 60 2RF Rx Instructions: To be taken with 30 mg for total of 90 mg. trazodone 50 mg tablet 100 mg PO .HS PRN (Reason: insomnia) Qty: 60 2RF duloxetine 30 mg capsule,delayed release(DR/EC) 30 mg PO DAILY Qty: 30 2RF ibuprofen 200 mg tablet 800 mg PO DAILY PRN bupivacaine (PF) 0.25 % (2.5 mg/mL) solution 2 ml Infiltration ONCE Qty: 1 0RF dexamethasone sodium phos (PF) 10 mg/mL solution 8 mg Infiltration ONCE Qty: 0.8 0RF (DME) cam boot See Rx Instructions .Route .MEDSUPPLY Qty: 1 0RF Rx Instructions: As directed (DME) ASO brace 9 See Rx Instructions .Route .MEDSUPPLY Qty: 1 0RF Rx Instructions: As directed methylprednisolone [Medrol (Anam)] 4 mg tablets,dose pack 4 mg PO DAILY Qty: 21 0RF Rx Instructions: Take once a day Naprosyn 500 mg tablet 500 mg PO BID PRN (Reason: pain) Qty: 20 0RF Discharge Orders: Discharge ED (Routine); Ordered 07/14/22 Ordered By: Nitish Erazo Referrals: Miladis Diaz DO [Primary Care Provider] - Discharge Diet: Regular Discharge Activity: Increase activity as tolerated Patient Instructions: Menorrhagia (ED), Opioid Safety Activity Restrictions/Additional Instructions: Follow-up with medical provider as directed in the next 3 to 5 days for reevaluation. Case management should be contacting you in the next several days to set up an appointment with SPEECH THERAPIST TECHNICIAN specialist. Take medications as prescribed. Return to the ER or your medical provider if condition worsens. Please read and understand discharge instructions. Thank you for choosing [facility] for your healthcare needs today. Please realize this is an emergency room and that we are providing you with a medical screening exam and this may not be complete and all inclusive of all the testing and or work up that you may need to determine your ailment or severity of your illness. It is very important that you follow up as instructed or that you return to the Emergency Department should you have concerns or if your condition changes or worsens in any way. Stand Alone Forms: Work/School Release Coding Level of Care Code ED Graphics Software Engineer for Lg Diaz
[2022-07-14] MEDS: ondansetron 2 mg/ML SDV 2 mL 4 MG IVP (17:52)
[2022-07-14] MEDS: sodium chloride 0.9% 1,000 ML 999 ML IV (17:52)
[2022-07-14 17:53] LABS: Basophils % 0.3 %; Eosinophils # 0.1 10^3/uL (0.0-0.8); Eosinophils % 0.9 %; Hemoglobin 14.8 g/dL (11.5-15.3); Lymphocytes # 2.8 10^3/uL (0.8-4.8); Lymphocytes % 28.3 %; Mean Corpuscular HGB Conc 33.6 g/dL (30.0-36.0); Mean Corpuscular Hemoglobin 29.7 pg (28.0-34.0); Mean Corpuscular Volume 88.2 fl (81-99); Mean Platelet Volume 10.7 fL (7.4-10.4); Monocytes # 0.6 10^3/uL (0.2-0.9); Monocytes % 6.2 %; Neutrophils # 6.39 10^3/uL (1.8-7.7); Nucleated Red Blood Cells % 0 %; Platelet Count 365 10^3/cmm (130-400); Red Blood Count 4.99 10^6/uL (4.1-5.3); Red Cell Distribution Width 12.3 % (12.1-15.1)
[2022-07-14 18:20] LABS: Alanine Aminotransferase 19 U/L (0-33); Albumin Level 4.5 g/dL (3.5-5.2); Alkaline Phosphatase 76 U/L (35-105); Aspartate Amino Transferase 14 U/L (0-32); Blood Urea Nitrogen 7 mg/dL (6-20); Calcium 9.1 mg/dL (8.5-10.5); Carbon Dioxide 24 mmol/L (22-29); Chloride 104 mmol/L (98-107); Creatinine Clr Calc Pharmacy 149.4721; Globulin 2.8 g/dL (1.3-4.6); Glomerular Filtration Rate 98.9 mL/min (90-130); Glucose 88 mg/dL (65-115); Osmolality Calculated 287 mOsm/kg (285-295); Sodium 140 mmol/L (136-145); Total Bilirubin 0.2 mg/dL (0.15-1.2); Total Protein 7.3 g/dL (6.6-8.7)
[2022-07-14 19:17] LABS: HCG, Serum Qual Negative (Negative)
[2022-07-14] MEDS: ketorolac 30 mg/mL INJ IVP (19:39)
[2022-07-14] MEDS: HYDROcodone-acetaminophen 7.5-325 mg Tablet 1 TAB PO (20:02)
--- NOTE | 2022-07-15 10:33 | DCPLANNER ---
Addendum entered by Majo Leggett 07/22/22 07:41: Patient had a follow up appointment scheduled with [facility] - patient did attend appointment Addendum entered by aMjo Leggett 07/17/22 07:36: Patient has a follow up appointment scheduled for Thursday, July 21, 2022 at 3:[address] Jorge at [facility]. Clinic will contact patient with appointment information. Original Note: manager lan had message to schedule a follow up appointment for patient with PREDATORY ANIMAL EXTERMINATOR. manager lan sent patients information to the front office staff at [facility]. Patients information will be printed and reviewed. Clinic will call patient with appointment information.
== END 2022-07-14 20:07 | disposition home or self-care (01) ==
PROVIDERS: Physician Assistant; Emergency Provider Physician Assistant; PCP Family Medicine
DX: N92.0 Excessive and frequent menstruation with regular cycle (principal); F17.210 Nicotine dependence, cigarettes, uncomplicated
CPT/HCPCS: 76856; 80053; 84703; 85025; 96361; 96374; 96375; 99284; J1885; J2405; J7030

== ENCOUNTER → 2022-07-21 16:23 | Outpatient (BNVA) | payer BC, MEDICAID, SELFPAY | PROVIDERS: PCP Family Medicine; Visit Provider Obstetrics & Gynecology | DX: N92.0 Excessive and frequent menstruation with regular cycle (principal) | CPT/HCPCS: 88305 ==

== ENCOUNTER 2022-08-05 08:57 | Outpatient (CLI) | payer BC, MEDICAID, SELFPAY ==
[2022-08-05 09:30] LABS: INR 0.93 (0.8-1.2)
[2022-08-05 09:31] LABS: Partial Thromboplastin Time 30.2 SECONDS (23.9-36.7)
== END 2022-08-05 08:58 | disposition home or self-care (01) ==
PROVIDERS: PCP Family Medicine; Visit Provider Obstetrics & Gynecology
DX: N93.9 Abnormal uterine and vaginal bleeding, unspecified (principal)
CPT/HCPCS: 36415; 85610; 85730

== ENCOUNTER → 2022-10-07 14:28 | Outpatient (BNVA) | payer BC, MEDICAID, SELFPAY | PROVIDERS: PCP Family Medicine; Visit Provider Nurse Practitioner Family | DX: R10.31 Right lower quadrant pain (principal); R10.32 Left lower quadrant pain; N30.90 Cystitis, unspecified without hematuria; N39.0 Urinary tract infection, site not specified | CPT/HCPCS: 81000; 87077; 87086; 87184 ==

== ENCOUNTER 2022-11-20 10:14 | Day surgery (SDC) | payer MEDICAID, SELFPAY ==
[2022-11-19 08:24] VITALS: BMI 51.0
[2022-11-20] VITALS (11 sets, daily range): BP systolic 120–190; BP diastolic 72–106; PULSE 65–92; RESP 16–18; TEMP 36.5–36.6; O2SAT 94–97
--- NOTE | 2022-11-20 02:29 | W.PM.OPSFHP ---
Same Day Surgery H&P Indication for Procedure/HPI DATE OF PROCEDURE: November 20, 2022 CHIEF COMPLAINT/INDICATIONFOR SURGICAL PROCEDURE: 31 y.o. SA1 with history of abnormal and prolonged periods had vasectomy Does not want fertility Menarche at age 11 Periods always very heavy Using pads every 30 minutes to 1 hour when on period Has been occurring for a long time Periods monthly, lasting 3-5 days Last six months have been even heavier Had tried OCs, patches, nexplanon, DMPA in the past without any relief Pelvic sono done 07-14-22 Normal uterus Endometrium 3.2 mm Ovaries normal States ?never wants to get ? Now wants endometrial ablation Past paps all normal PREOP DIAGNOSIS: abnormal uterine bleeding PLANNED PROCEDURE: Operation Date: 11/20/22 12:00 Proposed Procedures p Hysteroscopy, endometrial sampling 02604, Possible endometrial polypectomy with Myosire 61319, Endometrial ablation with Novasure 58979,N92.0(Not Applicable) - Shamir Jorge MD s Poylpectomy(Not Applicable) - Shamir Jorge MD s Endometriosis Cauterization Endometrial Ablation(Not Applicable) - Shamir Jorge MD Medications/Allergies* Home Medications Medication Instructions Recorded Confirmed Type acetaminophen 500 mg tablet 1,000 mg PO Q6H PRN Pain 01/16/22 11/19/22 History (Tylenol Extra Strength) ibuprofen 200 mg tablet 800 mg PO DAILY PRN Pain 01/16/22 11/19/22 History gabapentin 300 mg capsule See Rx Instructions .Route .COMPLEX 07/21/22 11/19/22 History bacitracin 500 unit/gram topical See Rx Instructions .Route 11/19/22 11/19/22 History ointment .COMPLEX PRN right breast trazodone 100 mg tablet 100 mg PO QPM 11/19/22 11/19/22 History Allergies/Adverse Reactions Allergy/AdvReac Type Severity Reaction Status Date / Time Fish Containing Products Allergy Severe ALGY-Anaphy Verified 11/19/22 08:18 laxis fluoxetine [From Prozac] Allergy Intermediate ALGY-Hives Verified 11/19/22 08:18 cephalexin [From Keflex] Allergy Unknown Verified 11/19/22 08:18 ciprofloxacin [From Cipro] Allergy Unknown Verified 11/19/22 08:18 clarithromycin [From Biaxin] Allergy Unknown Verified 11/19/22 08:18 doxycycline Allergy Unknown Verified 11/19/22 08:18 Latex, Natural Rubber Allergy Unknown Verified 11/19/22 08:18 morphine Allergy Unknown Verified 11/19/22 08:18 Penicillins Allergy Unknown Verified 11/19/22 08:18 Pertinent History/Comorbid Conditions* Medical History (Updated 10/20/22 @ 21:05 by Shamir Jorge MD) Ankle pain Chronic pain of left lower extremity Fracture of fourth metatarsal bone of left foot Fracture of third metatarsal bone of left foot Low back strain Psychiatric care Family History (Updated 07/21/22 @ 15:27 by Elena Woods LPN) Ovarian cancer Grandmother maternal Hyperlipidemia Family/Other maternal Hypertension Mother Uterine cancer Grandmother maternal Stroke Grandmother maternal Denies family history of Colon cancer Diabetes Heart disease Breast cancer Thyroid condition Social History Substance/Drug Use: former Date of last use: Marijuana- 16 yrs ago. Pertinent Exam Findings alert, oriented x 3, clear to auscultation bilaterally and regular rate & rhythm Recommendations Surgery/Procedure today Coding Level of Care Code Acute Code for Chg Fwd Diagnoses Time Spent (min) 30
[2022-11-20 10:44] LABS: OR HCG Qualitative Urine Negative (Negative)
[2022-11-20] MEDS: sodium chloride 0.9% 1,000 ML 30 ML IV (10:54)
[2022-11-20] MEDS: scopolamine 1.5 Patch 1 PATCH TRANSDERMA (10:55)
--- NOTE | 2022-11-20 11:03 | ANES.PREANE2 ---
Pre-Anesthetic Assessment Height/Weight: Height 1.55 m Weight 122.47 kg Temp Pulse Resp BP Pulse Ox O2 Del Method 97.7 F 73 18 150/94 97 Room Air 11/20/22 10:36 11/20/22 10:36 11/20/22 10:36 11/20/22 10:36 11/20/22 10:36 11/20/22 10:37 Preop Diagnosis: abnormal uterine bleeding Operation Date: 11/20/22 12:00 Proposed Procedures p Hysteroscopy, endometrial sampling 04152, Possible endometrial polypectomy with Myosire 35972, Endometrial ablation with Novasure 86258,N92.0(Not Applicable) - Shamir Jorge MD s Poylpectomy(Not Applicable) - Shamir Jorge MD s Endometriosis Cauterization Endometrial Ablation(Not Applicable) - Shamir Jorge MD Familial anesthetic complications: None Was Beta Alessandro taken within 24 hours: N/A Was Clonidine taken within 24 hours: N/A Last intake: Intake Last Liquid Date 11/19/22 Last Liquid Time 21:00 Last Solid Date 11/19/22 Last Solid Time 21:00 Social Tobacco and No alcohol Exam alert, oriented x 3, clear to auscultation bilaterally and regular rate & rhythm Airway Mallampati: Class II Dentition: chipped and other (extremely poor dentition) Metabolic Morbid Obesity [facility] Fibromyalgia Anesthetic Plan ASA status: 2 Anesthesia: General Risk of > 500 ml blood loss (7ml/kg in children): No Medications/Allergies Home Medications Medication Instructions Recorded Confirmed Last Taken Type acetaminophen 500 mg tablet 1,000 mg PO Q6H PRN Pain 01/16/22 11/19/22 11/19/22 History (Tylenol Extra Strength) duloxetine 30 mg capsule,delayed 30 mg PO DAILY #30 caps 01/16/22 11/19/22 11/19/22 Rx release duloxetine 60 mg capsule,delayed 60 mg PO DAILY #60 caps 01/16/22 11/19/22 11/19/22 Rx release ibuprofen 200 mg tablet 800 mg PO DAILY PRN Pain 01/16/22 11/20/22 Unknown History naproxen 500 mg tablet (Naprosyn) 500 mg PO BID PRN pain #20 tabs 03/13/22 11/20/22 Unknown Rx ondansetron 4 mg disintegrating 4 mg PO Q8H PRN nausea and 07/14/22 11/20/22 Unknown Rx tablet vomiting #12 tabs gabapentin 300 mg capsule See Rx Instructions .Route .COMPLEX 07/21/22 11/19/22 11/19/22 History mometasone 0.1 % topical cream 1 applic topical TID #45 grams 08/18/22 11/20/22 Unknown Rx phenazopyridine 200 mg tablet 200 mg PO Q8H PRN pain 6 doses #6 10/07/22 11/20/22 Unknown Rx (Pyridium) tabs mupirocin 2 % topical ointment 1 applic topical TID #45 grams 10/20/22 11/20/22 Unknown Rx bacitracin 500 unit/gram topical See Rx Instructions .Route 11/19/22 11/20/22 Unknown History ointment .COMPLEX PRN right breast trazodone 100 mg tablet 100 mg PO QPM 11/19/22 11/19/22 11/19/22 History Allergies Allergy/AdvReac Type Severity Reaction Status Date / Time Fish Containing Products Allergy Severe ALGY-Anaphy Verified 11/20/22 10:30 laxis fluoxetine [From Prozac] Allergy Intermediate ALGY-Hives Verified 11/20/22 10:30 cephalexin [From Keflex] Allergy Unknown Verified 11/20/22 10:30 ciprofloxacin [From Cipro] Allergy Unknown Verified 11/20/22 10:30 clarithromycin [From Biaxin] Allergy Unknown Verified 11/20/22 10:30 doxycycline Allergy Unknown Verified 11/20/22 10:30 Latex, Natural Rubber Allergy Unknown Verified 11/20/22 10:30 morphine Allergy Unknown Verified 11/20/22 10:30 Penicillins Allergy Unknown Verified 11/20/22 10:30 Current Medications Generic Name Dose Route Start Last Admin Trade Name Freq PRN Reason Stop Dose Admin Sodium Chloride 1,000 mls @ 30 mls/hr 11/20/22 10:30 11/20/22 10:54 Sodium Chloride 0.9% IV 11/21/22 10:29 30 mls/hr .Q24H KADE Administration PFSH Anesthesia Medical History Ankle pain Chronic pain of left lower extremity Fracture of fourth metatarsal bone of left foot Fracture of third metatarsal bone of left foot Low back strain Psychiatric care Family History Family/Other Hyperlipidemia maternal Mother Hypertension Grandmother Stroke maternal Ovarian cancer maternal Uterine cancer maternal Denies family history of Colon cancer Diabetes Heart disease Breast cancer Thyroid condition Social History Substance/Drug Use: former Date of last use: Marijuana- 16 yrs ago. Female Reproductive History Date of last menstrual period: 11/08/22 Data Anesthesia Cardiac Studies: No Data to Display
--- NOTE | 2022-11-20 11:53 | W.PM.OPSUD ---
Surgery/Procedure H&P Update DATE OF PROCEDURE: November 20, 2022 DATE H&P PERFORMED: 11/20/22 H&P UPDATE INFORMATION: I have reviewed H&P completed within last 30 days, I have examined patient prior to procedure and No changes to prior documentation PREOP DIAGNOSIS: abnormal uterine bleeding PRIMARY INDICATION FOR PROCEDURE: abnormal uterine bleeding PLANNED PROCEDURE: Operation Date: 11/20/22 12:00 Proposed Procedures p Hysteroscopy, endometrial sampling 45816, Possible endometrial polypectomy with Myosire 93629, Endometrial ablation with Novasure 48047,N92.0(Not Applicable) - Shamir Jorge MD s Poylpectomy(Not Applicable) - Shamir Jorge MD s Endometriosis Cauterization Endometrial Ablation(Not Applicable) - Shamir Jorge MD
[2022-11-20] MEDS: fentaNYL 50 mcg/mL INJ 2mL IVP (13:05)
--- NOTE | 2022-11-20 13:10 | P.OP_ITS ---
Operative Report Date of procedure: November 20, 2022 Pre-op diagnosis: Preop Diagnosis abnormal uterine bleeding Post-op diagnosis: same Post-op findings: small 1 cm perforation of uterine fundus No polyps or fibroids Small amount of endometrial tissue Procedure done: hysteroscopy Curettage of uterus Attempted endometrial ablation Specimens removed/disposition: endometrial curettings Surgeon: Shamir Jorge MD Anesthesia: MAC Estimated blood loss (mL): 0 Complications: small 1 cm perforation of uterine fundus Condition: stable Disposition: PACU Procedure: Informed consent signed Patient was taken to the OR and placed supine on the table.? General anesthesia was induced.? The patient was placed in dorsolithotomy position.? A bivalve speculum was placed in the vagina.? The anterior lip of the cervix was grasped with a sharp-toothed tenaculum.? The uterus was sounded to 9 cm.? The cervix was serially dilated with Hegar dilators. A hysteroscope was placed into the endometrial cavity.? The cavity at this time was seen to be intact.? No polyps or fibroids were seen.? Minimal endometrial tissue was seen.? Curettage of the endometrial cavity was done with a small curette.? Tissue was sent to pathology.? Hysteroscopy was again performed and the cavity was seen to be intact.? The hysteroscope was withdrawn. The Novasure device was prepared.? The uterus was measured with the Novasure sound.? The Novasure device was inserted.? Cavity integrity test at this point failed, indicating possible perforation.? The Novasure device was withdrawn.? The hysteroscope was inserted into the uterine cavity.? A 1 cm fundal perfora tion can be seen.? The hysteroscope was removed and the procedure was stopped at this point.? All instruments were removed from the cervix and vagina.? No bleeding was seen.? The patient was placed supine, awakened, and taken to the recovery room. Postoperative condition:? stable EBL: ? none Fluid deficit: ? 450 cc saline Sponge and instrument counts were correct x two
--- NOTE | 2022-11-20 13:30 | ANE.PACU2 ---
Inpatient post-anesthesia follow up: Airway intact: Yes Vital signs: Temperature 97.8 F Pulse Rate 65 Respiratory Rate 18 Blood Pressure 133/72 Pulse Oximetry 97 Oxygen Delivery Me thod Room Air Oxygen Flow Rate 6 Fraction of Inspir ed Oxygen Hydration adequate: Yes Nausea and vomiting: Yes Pain level: 1 Mental status: Baseline
--- NOTE | 2022-11-20 13:43 | SUR.PHASEII ---
1342-Patient states her pain is 9.5/10, no pain medication was prescribed for home - Dr Jorge called and he is ordering pain medication and stated he will call her at home to follow up on how she is doing. Will inform patient.
[2022-11-20] MEDS: oxyCODONE-APAP 5-325 mg Tablet 2 TAB PO (14:04)
== END 2022-11-20 14:30 | disposition home or self-care (01) ==
PROVIDERS: Anesthesiology; PCP Family Medicine; Visit Provider Obstetrics & Gynecology
PROC: 0UDB8ZZ Extraction of Endometrium, Via Natural or Artificial Opening Endoscopic (ICD-10-PCS; CPT 58558; principal; 2022-11-20 12:00)
DX: N92.0 Excessive and frequent menstruation with regular cycle (principal); E66.01 Morbid (severe) obesity due to excess calories; Z68.43 Body mass index [BMI] 50.0-59.9, adult; N99.71 Accidental puncture and laceration of a genitourinary system organ or structure during a genitourinary system procedure; Y83.8 Other surgical procedures as the cause of abnormal reaction of the patient, or of later complication, without mention of misadventure at the time of the procedure
CPT/HCPCS: 58558; 81025; 84703; 88305; J1100; J2405; J2704; J3010; J7030

== ENCOUNTER 2022-11-25 08:43 | Emergency (ER) | payer MEDICAID, SELFPAY ==
[2022-11-25 08:59] VITALS: TEMP 36.6; BMI 50.8
--- NOTE | 2022-11-25 09:08 | W.ED.SYNCOPE ---
Documented by User: ANTOINE Blankenship 11/25/22 12:39 HPI - Syncope General: Chief Complaint: Weakness Stated Complaint: weakness,fall Time Seen by Provider: 11/25/22 08:44 Source: patient Mode of arrival: ambulatory Limitations: no limitations History of Present Illness: Patient is a 32-year-old female who arrives to the ED for evaluation of a syncopal episode. Patient states earlier this morning she was sitting down on her balcony when she began feeling like she was having a hot flash. Individual accompanying her states that he witnessed her lose consciousness for a few seconds. No fall. Patient denies chest pain, shortness of breath, palpitations. Upon arrival she states she feels weak and slightly confused. Of note patient underwent a hysteroscopy/curettage of uterus and attempted endometrial ablation Dr. Jorge on 11/20. Procedure ended up being aborted due to a small uterine fundus perforation. Patient was managed expectantly. She states she has been taking oxycodone for pain butis still having pelvic/abdominal pain. She has had vaginal bleeding since the procedure and sometimes passes clots. She notices most of the bleeding while wiping and states she rarely is soaking pads. She has follow up appointment with Dr. Jorge tomorrow. complaint: loss of consciousness, felt faint and almost passed out Onset (ago): hour(s) -: second(s) Prodromal symptoms: other ( hot flash ) Witnessed: Yes - by Bystander Context: at rest Injuries sustained associated with event: none Associated symptoms: Reports abdominal pain and weakness; Deny chest pain, fever(s), headache(s) or nausea Treatments prior to arrival: none Review of Systems Const: Denies: fever(s), chills, body aches, fatigue or malaise Card: Denies: chest pain Resp: Denies: dyspnea GI: Reports: abdominal pain; Denies: nausea, vomiting or diarrhea : Reports: difficulty voiding, vaginal bleeding and pelvic pain; Denies: flank pain Musc: Denies: neck pain, back pain, extremity pain or joint pain Skin/Breast: Denies: rash Neuro: Reports: confusion and other (weakness); Denies: headache(s), numbness in extremities, weakness in extremities, sensory changes or dizziness PFS ED PFSH: Medical History Ankle pain Chronic pain of left lower extremity Fracture of fourth metatarsal bone of left foot Fracture of third metatarsal bone of left foot Low back strain Psychiatric care Family History Family/Other Hyperlipidemia maternal Mother Hypertension Grandmother Stroke maternal Ovarian cancer maternal Uterine cancer maternal Denies family history of Colon cancer Diabetes Heart disease Breast cancer Thyroid condition Social History Substance/Drug Use: former Date of last use: Marijuana- 16 yrs ago. Physical Exam Const: COMMON NORMALS: patient oriented x3, no limitations and alert GENERAL APPEARANCE: cooperative NUTRITIONAL APPEARANCE: obese morbidly obese (BMI is over 50) ORIENTATION/CONSCIOUSNESS: Yes awake, Yes oriented to person, Yes oriented to place and Yes oriented to time OTHER: appears weak; no confusion noted HENMT: COMMON NORMALS: normocephalic and atraumatic HEAD & SCALP: normal to inspection, normocephalic and atraumatic Resp: COMMON NORMALS: normal respiratory effort and clear to auscultation bilaterally AUSCULTATION: clear to auscultation bilaterally Cardio: COMMON NORMALS: regular rate and regular rhythm RATE: regular rate RHYTHM: regular rhythm GI: COMMON NORMALS: Normal to inspection, nondistended, normoactive bowel sounds present, Soft to palpation, No hepatosplenomegaly present and no masses INSPECTION: Yes normal to inspection AUSCULTATION: Yes normoactive bowel sounds PALPATION: Yes Soft to palpation, Yes Tenderness to palpation present (GI) (throughout abdomen; more so across lower abdomen/pelvis), Yes Guarding due to palpation present (GI), No Rigid due to palpation and Yes No hepatosplenomegaly present : COMMON NORMALS: Yes no CVA tenderness BLADDER/KIDNEY EXAM: Yes no CVA tenderness Back/Pelvis: COMMON NORMALS: no CVA tenderness Extremity: COMMON NORMALS: normal to inspection, no calf tenderness and no pedal edema GENERAL: Yes normal exam except as noted Neuro: KALEIGH COMA SCALE: document GCS findings Julian coma scale eye opening: Spontaneous Julian coma scale verbal response: Orientated Kaleigh coma scale motor response: Obey commands Julian coma scale total score: 15 COMMON NORMALS: patient oriented x3, CN's II-XII intact bilaterally, moves all extremities, no focal motor deficits and no sensory deficits noted SENSORIUM/ORIENTATION: Yes alert, Yes oriented to person, Yes oriented to place and Yes oriented to time Skin: COMMON NORMALS: no rashes or lesions noted GENERAL SKIN EXAM: no rashes or lesions noted Course Consultations: Consultation #1: Dr. Jorge-agrees with work up performed here and will follow up tomorrow with patient at her scheduled visit Vital Signs: Vital signs: Vital Signs Temperature 97.8 F 11/25/22 08:59 Pulse Rate 80 11/25/22 09:32 Respiratory Rate 16 11/25/22 11:07 Blood Pressure 146/72 11/25/22 09:32 Pulse Oximetry 96 11/25/22 09:32 MDM - Syncope Medical Decision Making Vitals are normal. H/H is stable. On CT imaging she has a small amount of blood along uterine fundus which is expected. No large hematoma formation. Nothing to suggest infection. No other visceral damage noted. EKG ordered for syncope is normal. Blood work is reassuring. UA showing hematuria which most likely is contamination given her vaginal bleeding. Patient feeling better on re-examination. I discussed case with Dr. Jorge who agrees with ED work-up here and will follow-up with her tomorrow at her currently scheduled office visit. Return to ED precautions given. Lab Data 11/25/22 09:34 11/25/22 09:34 Radiology Impressions Abdomen/Pelvis CT 11/25/22 09:11 IMPRESSION: 1. Small amount of complex fluid which is likely blood along the uterine fundus, posterior and LEFT lateral uterine body. Favor this is blood and not infection due to the patient's recent history of a uterine perforation. There is no large hematoma. 2. Size of the uterus and the endometrium by CT is within normal limits. 3. Normal appendix. 4. Prior cholecystectomy. Chest X-Ray 11/25/22 09:15 IMPRESSION: No acute findings. Laboratory Results WBC 8.0 10^3/uL (4.0-10.0) 11/25/22 09:34 RBC 4.88 10^6/uL (4.1-5.3) 11/25/22 09:34 Hgb 14.6 g/dL (11.5-15.3) 11/25/22 09:34 Hct 43.9 % (37.0-47.0) 11/25/22 09:34 MCV 90.0 fl (81-99) 11/25/22 09:34 MCH 29.9 pg (28.0-34.0) 11/25/22 09:34 MCHC 33.3 g/dL (30.0-36.0) 11/25/22 09:34 RDW 12.7 % (12.1-15.1) 11/25/22 09:34 Plt Count 292 10^3/cmm (130-400) 11/25/22 09:34 MPV 10.5 fL (7.4-10.4) H 11/25/22 09:34 Neut % (Auto) 61.4 % 11/25/22 09:34 Lymph % (Auto) 27.9 % 11/25/22 09:34 [place] % (Auto) 7.7 % 11/25/22 09:34 Eos % (Auto) 2.3 % 11/25/22 09:34 Baso % (Auto) 0.4 % 11/25/22 09:34 Neut # (Auto) 4.91 10^3/uL (1.8-7.7) 11/25/22 09:34 Lymph # (Auto) 2.2 10^3/uL (0.8-4.8) 11/25/22 09:34 [place] # (Auto) 0.6 10^3/uL (0.2-0.9) 11/25/22 09:34 Eos # (Auto) 0.2 10^3/uL (0.0-0.8) 11/25/22 09:34 Baso # (Auto) 0.0 10^3/uL (0.0-0.1) 11/25/22 09:34 Nucleated RBC % (auto) 0 % 11/25/22 09:34 Nucleated RBCs # 0.0 /100WBC 11/25/22 09:34 Sodium 137 mmol/L (136-145) 11/25/22 09:34 Potassium 3.9 mmol/L (3.5-5.1) 11/25/22 09:34 Chloride 106 mmol/L (98-107) 11/25/22 09:34 Carbon Dioxide 21 mmol/L (22-29) L 11/25/22 09:34 Anion Gap 13.9 (5-19) 11/25/22 09:34 BUN 4 mg/dL (6-20) L 11/25/22 09:34 Creatinine 0.7 mg/dL (0.5-0.9) 11/25/22 09:34 GFR Calculation 98.3 mL/min (90-130) 11/25/22 09:34 Glucose 81 mg/dL (65-115) 11/25/22 09:34 Calculated Osmolality 280 mOsm/kg (285-295) L 11/25/22 09:34 Lactic Acid 1.5 mmol/L (0.5-2.2) 11/25/22 09:34 Calcium 8.9 mg/dL (8.5-10.5) 11/25/22 09:34 Total Bilirubin 0.2 mg/dL (0.15-1.2) 11/25/22 09:34 AST 11 U/L (0-32) 11/25/22 09:34 ALT 11 U/L (0-33) 11/25/22 09:34 Alkaline Phosphatase 74 U/L (35-105) 11/25/22 09:34 Total Protein 6.5 g/dL (6.6-8.7) L 11/25/22 09:34 Albumin 3.5 g/dL (3.5-5.2) 11/25/22 09:34 Globulin 3.0 g/dL (1.3-4.6) 11/25/22 09:34 Urine Color Yellow (Yellow) 11/25/22 09:57 Urine Appearance Clear (CLEAR) 11/25/22 09:57 Urine pH 7 (5-7) 11/25/22 09:57 Ur Specific Adah 1.010 (1.005-1.030) 11/25/22 09:57 Urine Protein Neg (Negative) 11/25/22 09:57 Urine Glucose (UA) Norm (Normal) 11/25/22 09:57 Urine Ketones Negative (Negative) 11/25/22 09:57 Urine Blood 3+ (Negative) H 11/25/22 09:57 Urine Nitrate Negative (Negative) 11/25/22 09:57 Urine Bilirubin Neg (Negative) 11/25/22 09:57 Urine Urobilinogen Norm mg/dL (Negative) 11/25/22 09:57 Ur Leukocyte Esterase Negative (Negative) 11/25/22 09:57 Urine RBC Rare /hpf (0-2) 11/25/22 09:57 Urine WBC 0-4 /hpf (0-5) H 11/25/22 09:57 Ur Squamous Epith Cells 0-4 /hpf (0-5) H 11/25/22 09:57 Amorphous Sediment Not Reportable 11/25/22 09:57 Urine Bacteria 1+ /hpf (NONE) H 11/25/22 09:57 Discharge Plan Discharge Patient Disposition: Home Clinical Impression: Syncope Qualifiers: Syncope type: unspecified Qualified Code(s): R55 - Syncope and collapse Uterine perforation Qualifiers: Encounter type: initial encounter Qualified Code(s): S37.69XA - Other injury of uterus, initial encounter Condition: Stable Prescriptions: No Action gabapentin 300 mg capsule See Rx Instructions .ROUTE .COMPLEX Dose Instruction: TAKE ONE CAPSULE BY MOUTH TWICE DAILY FOR chronic pain Rx Instructions: TAKE ONE CAPSULE BY MOUTH three times DAILY FOR chronic pain acetaminophen [Tylenol Extra Strength] 500 mg tablet 1,000 mg PO Q6H PRN (Reason: Pain) duloxetine 60 mg capsule,delayed release(DR/EC) 60 mg PO DAILY Qty: 60 2RF Rx Instructions: To be taken with 30 mg for total of 90 mg. duloxetine 30 mg capsule,delayed release(DR/EC) 30 mg PO DAILY Qty: 30 2RF ibuprofen 200 mg tablet 800 mg PO DAILY PRN (Reason: Pain) mometasone 0.1 % cream 1 applic topical TID Qty: 45 3RF phenazopyridine [Pyridium] 200 mg tablet 200 mg PO Q8H PRN (Reason: pain) Qty: 6 0RF mupirocin 2 % ointment 1 applic topical TID Qty: 45 0RF Rx Instructions: APPLY 3 TIMES DAILY naproxen [Naprosyn] 500 mg tablet 500 mg PO BID PRN (Reason: pain) Qty: 20 0RF trazodone 100 mg tablet 100 mg PO QPM bacitracin 500 unit/gram ointment See Rx Instructions .ROUTE .COMPLEX PRN (Reason: right breast ) Rx Instructions: apply TO THE breast two TO three times PER DAY ondansetron 4 mg tablet,disintegrating 4 mg PO Q8H PRN (Reason: nausea and vomiting) Qty: 12 0RF Discharge Orders: Discharge ED (Routine); Ordered 11/25/22 Ordered By: Maureen Ferrell Referrals: Miladis Diaz DO [Primary Care Provider] - Activity Restrictions/Additional Instructions: I spoke with Dr. Jorge who is comfortable with discharging you from the emergency department and he will follow-up tomorrow at your currently scheduled appointment. As we discussed I recommend taking a few days off work for added rest/recovery. You need to return to the emergency department for worsening or severe abdominal pain, any further syncopal episodes, severe vaginal bleeding (soaking more than a pad every 1 to 2 hours), or any other concerns you have. Stand Alone Forms: Work/School Release Coding Level of Care Code ED Flatwork Supervisor for Chg Fwd Documented by User: Pro Vides DO 11/27/22 06:29 HPI - Syncope General: Chief Complaint: Weakness Stated Complaint: weakness,fall Time Seen by Provider: 11/25/22 08:44 PFSH ED PFSH: Medical History Ankle pain Chronic pain of left lower extremity Fracture of fourth metatarsal bone of left foot Fracture of third metatarsal bone of left foot Low back strain Psychiatric care Family History Family/Other Hyperlipidemia maternal Mother Hypertension Grandmother Stroke maternal Ovarian cancer maternal Uterine cancer maternal Denies family history of Colon cancer Diabetes Heart disease Breast cancer Thyroid condition Social History Substance/Drug Use: former Date of last use: Marijuana- 16 yrs ago. Physical Exam Neuro: KALEIGH COMA SCALE: document GCS findings Kaleigh coma scale total score: 15 Course Vital Signs: Vital signs: Vital Signs Temperature 97.8 F 11/25/22 08:59 Pulse Rate 80 11/25/22 09:32 Respiratory Rate 16 11/25/22 11:07 Blood Pressure 146/72 11/25/22 09:32 Pulse Oximetry 96 11/25/22 09:32 MDM - Syncope Medical Decision Making Vitals are normal. H/H is stable. On CT imaging she has a small amount of blood along uterine fundus which is expected. No large hematoma formation. Nothing to suggest infection. No other visceral damage noted. EKG ordered for syncope is normal. Blood work is reassuring. UA showing hematuria which most likely is contamination given her vaginal bleeding. Patient feeling better on re-examination. I discussed case with Dr. Jorge who agrees with ED work-up here and will follow-up with her tomorrow at her currently scheduled office visit. Return to ED precautions given. Chart reviewed and patient discussed with midlevel. Agree with assessment and plan. Lab Data 11/25/22 09:34 11/25/22 09:34 Radiology Impressions Abdomen/Pelvis CT 11/25/22 09:11 IMPRESSION: 1. Small amount of complex fluid which is likely blood along the uterine fundus, posterior and LEFT lateral uterine body. Favor this is blood and not infection due to the patient's recent history of a uterine perforation. There is no large hematoma. 2. Size of the uterus and the endometrium by CT is within normal limits. 3. Normal appendix. 4. Prior cholecystectomy. Chest X-Ray 11/25/22 09:15 IMPRESSION: No acute findings. Laboratory Results WBC 8.0 10^3/uL (4.0-10.0) 11/25/22 09:34 RBC 4.88 10^6/uL (4.1-5.3) 11/25/22 09:34 Hgb 14.6 g/dL (11.5-15.3) 11/25/22 09:34 Hct 43.9 % (37.0-47.0) 11/25/22 09:34 MCV 90.0 fl (81-99) 11/25/22 09:34 MCH 29.9 pg (28.0-34.0) 11/25/22 09:34 MCHC 33.3 g/dL (30.0-36.0) 11/25/22 09:34 RDW 12.7 % (12.1-15.1) 11/25/22 09:34 Plt Count 292 10^3/cmm (130-400) 11/25/22 09:34 MPV 10.5 fL (7.4-10.4) H 11/25/22 09:34 Neut % (Auto) 61.4 % 11/25/22 09:34 Lymph % (Auto) 27.9 % 11/25/22 09:34 [place] % (Auto) 7.7 % 11/25/22 09:34 Eos % (Auto) 2.3 % 11/25/22 09:34 Baso % (Auto) 0.4 % 11/25/22 09:34 Neut # (Auto) 4.91 10^3/uL (1.8-7.7) 11/25/22 09:34 Lymph # (Auto) 2.2 10^3/uL (0.8-4.8) 11/25/22 09:34 [place] # (Auto) 0.6 10^3/uL (0.2-0.9) 11/25/22 09:34 Eos # (Auto) 0.2 10^3/uL (0.0-0.8) 11/25/22 09:34 Baso # (Auto) 0.0 10^3/uL (0.0-0.1) 11/25/22 09:34 Nucleated RBC % (auto) 0 % 11/25/22 09:34 Nucleated RBCs # 0.0 /100WBC 11/25/22 09:34 Sodium 137 mmol/L (136-145) 11/25/22 09:34 Potassium 3.9 mmol/L (3.5-5.1) 11/25/22 09:34 Chloride 106 mmol/L (98-107) 11/25/22 09:34 Carbon Dioxide 21 mmol/L (22-29) L 11/25/22 09:34 Anion Gap 13.9 (5-19) 11/25/22 09:34 BUN 4 mg/dL (6-20) L 11/25/22 09:34 Creatinine 0.7 mg/dL (0.5-0.9) 11/25/22 09:34 GFR Calculation 98.3 mL/min (90-130) 11/25/22 09:34 Glucose 81 mg/dL (65-115) 11/25/22 09:34 Calculated Osmolality 280 mOsm/kg (285-295) L 11/25/22 09:34 Lactic Acid 1.5 mmol/L (0.5-2.2) 11/25/22 09:34 Calcium 8.9 mg/dL (8.5-10.5) 11/25/22 09:34 Total Bilirubin 0.2 mg/dL (0.15-1.2) 11/25/22 09:34 AST 11 U/L (0-32) 11/25/22 09:34 ALT 11 U/L (0-33) 11/25/22 09:34 Alkaline Phosphatase 74 U/L (35-105) 11/25/22 09:34 Total Protein 6.5 g/dL (6.6-8.7) L 11/25/22 09:34 Albumin 3.5 g/dL (3.5-5.2) 11/25/22 09:34 Globulin 3.0 g/dL (1.3-4.6) 11/25/22 09:34 Urine Color Yellow (Yellow) 11/25/22 09:57 Urine Appearance Clear (CLEAR) 11/25/22 09:57 Urine pH 7 (5-7) 11/25/22 09:57 Ur Specific Adah 1.010 (1.005-1.030) 11/25/22 09:57 Urine Protein Neg (Negative) 11/25/22 09:57 Urine Glucose (UA) Norm (Normal) 11/25/22 09:57 Urine Ketones Negative (Negative) 11/25/22 09:57 Urine Blood 3+ (Negative) H 11/25/22 09:57 Urine Nitrate Negative (Negative) 11/25/22 09:57 Urine Bilirubin Neg (Negative) 11/25/22 09:57 Urine Urobilinogen Norm mg/dL (Negative) 11/25/22 09:57 Ur Leukocyte Esterase Negative (Negative) 11/25/22 09:57 Urine RBC Rare /hpf (0-2) 11/25/22 09:57 Urine WBC 0-4 /hpf (0-5) H 11/25/22 09:57 Ur Squamous Epith Cells 0-4 /hpf (0-5) H 11/25/22 09:57 Amorphous Sediment Not Reportable 11/25/22 09:57 Urine Bacteria 1+ /hpf (NONE) H 11/25/22 09:57 Discharge Plan Discharge Patient Disposition: Home Clinical Impression: Syncope Qualifiers: Syncope type: unspecified Qualified Code(s): R55 - Syncope and collapse Uterine perforation Qualifiers: Encounter type: initial encounter Qualified Code(s): S37.69XA - Other injury of uterus, initial encounter Condition: Stable Prescriptions: No Action gabapentin 300 mg capsule See Rx Instructions .ROUTE .COMPLEX Dose Instruction: TAKE ONE CAPSULE BY MOUTH TWICE DAILY FOR chronic pain Rx Instructions: TAKE ONE CAPSULE BY MOUTH three times DAILY FOR chronic pain acetaminophen [Tylenol Extra Strength] 500 mg tablet 1,000 mg PO Q6H PRN (Reason: Pain) duloxetine 60 mg capsule,delayed release(DR/EC) 60 mg PO DAILY Qty: 60 2RF Rx Instructions: To be taken with 30 mg for total of 90 mg. duloxetine 30 mg capsule,delayed release(DR/EC) 30 mg PO DAILY Qty: 30 2RF ibuprofen 200 mg tablet 800 mg PO DAILY PRN (Reason: Pain) mometasone 0.1 % cream 1 applic topical TID Qty: 45 3RF phenazopyridine [Pyridium] 200 mg tablet 200 mg PO Q8H PRN (Reason: pain) Qty: 6 0RF mupirocin 2 % ointment 1 applic topical TID Qty: 45 0RF Rx Instructions: APPLY 3 TIMES DAILY naproxen [Naprosyn] 500 mg tablet 500 mg PO BID PRN (Reason: pain) Qty: 20 0RF trazodone 100 mg tablet 100 mg PO QPM bacitracin 500 unit/gram ointment See Rx Instructions .ROUTE .COMPLEX PRN (Reason: right breast ) Rx Instructions: apply TO THE breast two TO three times PER DAY ondansetron 4 mg tablet,disintegrating 4 mg PO Q8H PRN (Reason: nausea and vomiting) Qty: 12 0RF Discharge Orders: Discharge ED (Routine); Ordered 11/25/22 Ordered By: Maureen Ferrell Referrals: Miladis Diaz DO [Primary Care Provider] - Activity Restrictions/Additional Instructions: I spoke with Dr. Jorge who is comfortable with discharging you from the emergency department and he will follow-up tomorrow at your currently scheduled appointment. As we discussed I recommend taking a few days off work for added rest/recovery. You need to return to the emergency department for worsening or severe abdominal pain, any further syncopal episodes, severe vaginal bleeding (soaking more than a pad every 1 to 2 hours), or any other concerns you have. Stand Alone Forms: Work/School Release Coding Level of Care Code ED Flatwork Supervisor for Lg Diaz
--- NOTE | 2022-11-25 09:11 | CT_ITS ---
WS: [id number] CT ABDOMEN AND PELVIS WITH CONTRAST HISTORY: abdominal pain, syncope; hx of uterine perforation TECHNIQUE: Imaging performed of the abdomen and pelvis with IV contrast. Single phase imaging of the abdomen. Coronal and sagittal reformats are submitted. All CT scans at [facility] use at [address] one of these dose optimization techniques: automated exposure control; mA and/or kV adjustment per patient size (includes targeted exams where dose is matched to clinical indication); or iterative re construction. IV CONTRAST: Omnipaque 350; 100 mL IV. Oral contrast: No DLP: 1266.24 mGy.cm COMPARISON: Pelvic ultrasound 07/14/2022 Lower thorax: Lung bases are clear. Heart is normal size. No hiatal hernia. Liver/biliary system: Normal size with no intrahepatic dilatation. Gallbladder: Normal. No gallstones or wall thickening. No pericholecystic fluid. Pancreas: Normal size pancreas and pancreatic duct. No adjacent inflammation. Spleen: Normal size spleen. No mass or infarct. Adrenal glands: Normal. Right kidney: Normal. Left kidney: Normal. Aorta: Normal. Lymphadenopathy: None. Free fluid: None. GI tract: Normal stomach. Normal small bowel obstruction. Normal appendix. No colon obstruction. Abdominal wall: Fat containing umbilical hernia. Pelvis: There is a small amount of fluid adjacent inseparable from the uterus. Low-attenuation along the fundus of the uterus extending over the posterior LEFT lateral uterus. By history there was a rec ent uterine perforation. Perforation is not identified but with the history these changes are probabl y due to small amount of blood products from the perforation. There is no free fluid or large hematom a within the pelvis. Endometrium by CT is unremarkable. Bones: Unremarkable. CT/CT abdomen pelvis w con* [id number] IMPRESSION: 1. Small amount of complex fluid which is likely blood along the uterine fundu s, posterior and LEFT lateral uterine body. Favor this is blood and not infecti on due to the patient's recent history of a uterine perforation. There is no la rge hematoma. 2. Size of the uterus and the endometrium by CT is within normal limits. 3. Normal appendix. 4. Prior cholecystectomy.
--- NOTE | 2022-11-25 09:14 | ECG_ITS ---
[facility] Test Date: 2022-11-25 Pat Name: Tavo Johnson Department: Room: Gender: Female Frame Polisher: : 1990 Requested By: Maureen Ferrell Order Number: [id number] Jeana MD: José Luis Earl M.D. Measurements Intervals [place] Rate: 77 P: 12 OK: 138 QRS: 20 QRSD: 96 T: 31 QT: 397 QTc: 452 Interpretive Statements SINUS RHYTHM LOW QRS VOLTAGE IN PRECORDIAL LEADS [QRS DEFLECTION < 1.0 mV IN CHEST LEADS] No previous ECG available for comparison Electronically Signed On 11-25-2022 20:29:49 CDT by José Luis Earl M.D. [email or web address]
--- NOTE | 2022-11-25 09:15 | XRR_ITS ---
PROCEDURE INFORMATION: Exam: XR Chest Exam date and time: 11/25/2022 9:51 AM Age: 32 years old Clinical indication: Other: Syncope TECHNIQUE: Imaging protocol: Radiologic exam of the chest. Views: 1 view. COMPARISON: No relevant prior studies available. FINDINGS: Lungs: Mild left lower lung platelike atelectasis versus scarring. No consolidation. Pleural spaces: Unremarkable. No pleural effusion. No pneumothorax. Heart/Mediastinum: Unremarkable. No cardiomegaly. Bones/joints: Unremarkable. XR/XR chest 1V portable [id number] IMPRESSION: No acute findings.
[2022-11-25 09:32] VITALS: BP 146/72; PULSE 80; O2SAT 96
[2022-11-25] MEDS: sodium chloride 0.9% 1,000 ML 999 ML IV (09:35)
[2022-11-25] MEDS: iohexol 350 mg/mL 500 mL Btl (per mL) IV (09:48)
[2022-11-25 09:49] LABS: Basophils % 0.4 %; Eosinophils # 0.2 10^3/uL (0.0-0.8); Eosinophils % 2.3 %; Hematocrit 43.9 % (37.0-47.0); Hemoglobin 14.6 g/dL (11.5-15.3); Lymphocytes # 2.2 10^3/uL (0.8-4.8); Lymphocytes % 27.9 %; Mean Corpuscular HGB Conc 33.3 g/dL (30.0-36.0); Mean Corpuscular Hemoglobin 29.9 pg (28.0-34.0); Mean Platelet Volume 10.5 fL (7.4-10.4); Monocytes # 0.6 10^3/uL (0.2-0.9); Monocytes % 7.7 %; Neutrophils # 4.91 10^3/uL (1.8-7.7); Neutrophils % 61.4 %; Nucleated Red Blood Cells % 0 %; Platelet Count 292 10^3/cmm (130-400); Red Blood Count 4.88 10^6/uL (4.1-5.3); Red Cell Distribution Width 12.7 % (12.1-15.1)
[2022-11-25 10:04] LABS: Lactic Sepsis W/Reflex 1.5 mmol/L (0.5-2.2)
[2022-11-25 10:08] LABS: Alanine Aminotransferase 11 U/L (0-33); Albumin Level 3.5 g/dL (3.5-5.2); Alkaline Phosphatase 74 U/L (35-105); Anion Gap 13.9 (5-19); Aspartate Amino Transferase 11 U/L (0-32); Blood Urea Nitrogen 4 mg/dL (6-20); Calcium 8.9 mg/dL (8.5-10.5); Carbon Dioxide 21 mmol/L (22-29); Chloride 106 mmol/L (98-107); Glomerular Filtration Rate 98.3 mL/min (90-130); Glucose 81 mg/dL (65-115); Osmolality Calculated 280 mOsm/kg (285-295); Potassium 3.9 mmol/L (3.5-5.1); Sodium 137 mmol/L (136-145); Total Bilirubin 0.2 mg/dL (0.15-1.2); Total Protein 6.5 g/dL (6.6-8.7)
[2022-11-25 10:30] LABS: Bilirubin Urine Neg (Negative); Glucose Urine UA Norm (Normal); Ketones Urine Negative (Negative); Leukocyte Esterase Urine Negative (Negative); Nitrate Urine Negative (Negative); Protein Urine Neg (Negative); Urine Appearance Clear (CLEAR); Urine Color Yellow (Yellow); Urobilinogen Urine Norm (Negative); pH Urine 7 (5-7)
[2022-11-25 10:31] LABS: Add Urine Microscopic? YES; Bacteria Urine 1+ /hpf; Blood Urine 3+ (Negative); RBC Urine RARE /hpf (0-2); Squamous Epithelial Cell Urine 0-4 /hpf (0-5); WBC Urine 0-4 /hpf (0-5)
[2022-11-25] MEDS: ondansetron 2 mg/ML SDV 2 mL 4 MG IVP (11:02)
[2022-11-25 11:07] VITALS: RESP 16
[2022-11-25] MEDS: HYDROmorphone 1 mg/mL INJ 1 mL 0.5 MG IVP (11:07)
== END 2022-11-25 11:20 | disposition home or self-care (01) ==
PROVIDERS: Emergency Provider Physician Assistant; PCP Family Medicine
DX: R55 Syncope and collapse (principal); S37.69XA Other injury of uterus, initial encounter; Y83.8 Other surgical procedures as the cause of abnormal reaction of the patient, or of later complication, without mention of misadventure at the time of the procedure
CPT/HCPCS: 36415; 71045; 74177; 80053; 81001; 83605; 85025; 93005; 96374; 96375; 99285; J1170; J2405; J7030; Q9967

== ENCOUNTER 2022-11-29 08:58 | Emergency (ER) | payer MEDICAID, SELFPAY ==
[2022-11-29 09:06] VITALS: BP 189/125; PULSE 67; RESP 18; TEMP 36.7; O2SAT 97; BMI 51.7
--- NOTE | 2022-11-29 09:21 | W.ED.FEMALGU ---
HPI - Female Genitourinary General: Chief complaint: Urogenital-Female Stated complaint: recently had uterus surgery, bleeding Time Seen by Provider: 11/29/22 09:02 History of Present Illness: 32-year-old female presents emergency department with complaints of excessive vaginal bleeding. She states that approximately 1 week ago she was seen by her LASER SPECIALIST and had an endometrial ablation and since that time she has had intermittent bleeding and clots. She states there was a concern that there may have been a perforation of her uterus and states that her LASER SPECIALIST stated that it would heal. The patient states that she is requesting a hysterectomy several times and has not been able to have one as of yet. She states lower abdominal cramping and pain that is a 4 out of 10 she states she soaked a large superabsorbent feminine hygiene pad this morning. She states that she feels like she also has elevated blood pressure she states she has never had her blood pressure be as high as it is right now. She denies chest pain or shortness of breath. She denies increased fatigue or malaise. 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 Associated symptoms: Reports nausea; Deny vaginal discharge Review of Systems General: Reports: 10 or more systems reviewed and unremarkable except in HPI and below GI: Reports: nausea and vomiting : Reports: vaginal bleeding, irregular period, metrorrhagia and change in menstrual flow; Denies: vaginal discharge or pelvic pain [facility] ED PFSH: Medical History Ankle pain Chronic pain of left lower extremity Fracture of fourth metatarsal bone of left foot Fracture of third metatarsal bone of left foot Low back strain Psychiatric care Family History Family/Other Hyperlipidemia maternal Mother Hypertension Grandmother Stroke maternal Ovarian cancer maternal Uterine cancer maternal Denies family history of Colon cancer Diabetes Heart disease Breast cancer Thyroid condition Social History Substance/Drug Use: former Date of last use: Marijuana- 16 yrs ago. Physical Exam Const: COMMON NORMALS: no acute distress, patient oriented x3 and alert HENMT: COMMON NORMALS: normocephalic and atraumatic HEAD & SCALP: normocephalic and atraumatic Eye: COMMON NORMALS: Equal, round and reactive pupils present and EOMs intact bilaterally PUPIL: Yes Equal, round and reactive pupils present Neck/C-Spine: COMMON NORMALS: full ROM, supple and no JVD Chest: COMMONS NORMALS: normal inspection of the chest Resp: COMMON NORMALS: normal respiratory effort, No use of accessory muscles and clear to auscultation bilaterally AUSCULTATION: clear to auscultation bilaterally Cardio: COMMON NORMALS: no JVD, regular rate, regular rhythm, S1 normal heart sound present, S2 normal heart sound present, No gallops present (Cardio), No clicks present (Cardio) and Peripheral pulses 2+ throughout RATE: regular rate RHYTHM: regular rhythm HEART SOUNDS: S1 normal heart sound present and S2 normal heart sound present PERIPHERAL PULSES: Peripheral pulses 2+ throughout GI: COMMON NORMALS: Normal to inspection, nondistended, normoactive bowel sounds present, Soft to palpation, non-tender, No hepatosplenomegaly present and no masses PALPATION: Yes Soft to palpation and Yes No hepatosplenomegaly present : COMMON NORMALS: Yes no CVA tenderness BLADDER/KIDNEY EXAM: Yes no CVA tenderness OTHER: Deferred at patient's request and given her recent surgical intervention we will have the LASER SPECIALIST specialist evaluate on an outpatient basis. Back/Pelvis: COMMON NORMALS: no CVA tenderness Extremity: COMMON NORMALS: normal to inspection, full ROM and capillary refill normal Neuro: COMMON NORMALS: patient oriented x3, moves all extremities and no sensory deficits noted SENSORIUM/ORIENTATION: Yes alert Psych: COMMON NORMALS: mental status grossly normal, Normal thought process present, cooperative and activity/motor behavior normal THOUGHT PROCESS: Normal thought process present Skin: COMMON NORMALS: no rashes or lesions noted and turgor normal GENERAL SKIN EXAM: no rashes or lesions noted and turgor normal Course Vital Signs: Vital signs: Vital Signs Temperature 98.0 F 11/29/22 09:06 Pulse Rate 72 11/29/22 10:37 Respiratory Rate 18 11/29/22 09:06 Blood Pressure 166/90 11/29/22 10:37 Pulse Oximetry 98 11/29/22 10:37 Oxygen Delivery Me thod Room Air 11/29/22 09:43 MDM - Female Medical Decision Making Physical exam completed and documented. I will obtain a CBC to evaluate for infectious status and for her anemia associated with her reports of dysfunctional uterine bleeding. Given her nausea and single episode of vomiting we will provide her Zofran IV and we will obtain a CBC to evaluate her electrolyte status as well as her renal function and liver function. Given her recent procedure we will also obtain a procalcitonin to evaluate her infectious status. The plan is initially to discharge her if all labs return within acceptable limits and have her follow-up with her LASER SPECIALIST given her recent DESKTOP ENGINEER procedure. Medical Records Dysfunctional uterine bleeding. UTI, Lab Data I reviewed the patient's lab results. 11/29/22 09:45 11/29/22 09:45 Laboratory Results WBC 6.5 10^3/uL (4.0-10.0) 11/29/22 09:45 RBC 4.76 10^6/uL (4.1-5.3) 11/29/22 09:45 Hgb 13.9 g/dL (11.5-15.3) 11/29/22 09:45 Hct 42.0 % (37.0-47.0) 11/29/22 09:45 MCV 88.2 fl (81-99) 11/29/22 09:45 MCH 29.2 pg (28.0-34.0) 11/29/22 09:45 MCHC 33.1 g/dL (30.0-36.0) 11/29/22 09:45 RDW 12.5 % (12.1-15.1) 11/29/22 09:45 Plt Count 336 10^3/cmm (130-400) 11/29/22 09:45 MPV 10.4 fL (7.4-10.4) 11/29/22 09:45 Neut % (Auto) 58.8 % 11/29/22 09:45 Lymph % (Auto) 33.1 % 11/29/22 09:45 [place] % (Auto) 6.2 % 11/29/22 09:45 Eos % (Auto) 1.4 % 11/29/22 09:45 Baso % (Auto) 0.3 % 11/29/22 09:45 Neut # (Auto) 3.83 10^3/uL (1.8-7.7) 11/29/22 09:45 Lymph # (Auto) 2.2 10^3/uL (0.8-4.8) 11/29/22 09:45 [place] # (Auto) 0.4 10^3/uL (0.2-0.9) 11/29/22 09:45 Eos # (Auto) 0.1 10^3/uL (0.0-0.8) 11/29/22 09:45 Baso # (Auto) 0.0 10^3/uL (0.0-0.1) 11/29/22 09:45 Nucleated RBC % (auto) 0 % 11/29/22 09:45 Nucleated RBCs # 0.0 /100WBC 11/29/22 09:45 PT 12.40 SECONDS (12.1-14.9) 11/29/22 09:45 INR 0.90 (0.8-1.2) 11/29/22 09:45 APTT 33.0 SECONDS (23.9-36.7) 11/29/22 09:45 Sodium 137 mmol/L (136-145) 11/29/22 09:45 Potassium 4.3 mmol/L (3.5-5.1) 11/29/22 09:45 Chloride 105 mmol/L (98-107) 11/29/22 09:45 Carbon Dioxide 22 mmol/L (22-29) 11/29/22 09:45 Anion Gap 14.3 (5-19) 11/29/22 09:45 BUN 8 mg/dL (6-20) 11/29/22 09:45 Creatinine 0.8 mg/dL (0.5-0.9) 11/29/22 09:45 GFR Calculation 84.2 mL/min (90-130) L 11/29/22 09:45 Glucose 93 mg/dL (65-115) 11/29/22 09:45 Calculated Osmolality 282 mOsm/kg (285-295) L 11/29/22 09:45 Calcium 9.2 mg/dL (8.5-10.5) 11/29/22 09:45 Total Bilirubin 0.2 mg/dL (0.15-1.2) 11/29/22 09:45 AST 13 U/L (0-32) 11/29/22 09:45 ALT 12 U/L (0-33) 11/29/22 09:45 Alkaline Phosphatase 72 U/L (35-105) 11/29/22 09:45 Total Protein 6.7 g/dL (6.6-8.7) 11/29/22 09:45 Albumin 3.7 g/dL (3.5-5.2) 11/29/22 09:45 Globulin 3.0 g/dL (1.3-4.6) 11/29/22 09:45 Procalcitonin 0.02 ng/mL (0-0.5) 11/29/22 09:45 HCG, Qual Negative (Negative) 11/29/22 09:30 Urine Color Red (Yellow) 11/29/22 09:30 Urine Appearance Hazy (CLEAR) A 11/29/22 09:30 Urine pH 8 (5-7) H 11/29/22 09:30 Ur Specific [place] 1.020 (1.005-1.030) 11/29/22 09:30 Urine Protein 1+ (Negative) H 11/29/22 09:30 Urine Glucose (UA) Norm (Normal) 11/29/22 09:30 Urine Ketones Negative (Negative) 11/29/22 09:30 Urine Blood 3+ (Negative) H 11/29/22 09:30 Urine Nitrate Negative (Negative) 11/29/22 09:30 Urine Bilirubin Neg (Negative) 11/29/22 09:30 Prot Sulfosalicylic Acd Positive (Negative) 11/29/22 09:30 Urine Urobilinogen Norm mg/dL (Negative) 11/29/22 09:30 Ur Leukocyte Esterase Trace (Negative) H 11/29/22 09:30 Urine RBC Too numerous to cnt /hpf (0-2) H 11/29/22 09:30 Urine WBC 0-4 /hpf (0-5) H 11/29/22 09:30 Ur Squamous Epith Cells 0-4 /hpf (0-5) H 11/29/22 09:30 Amorphous Sediment Not Reportable 11/29/22 09:30 Urine Bacteria 1+ /hpf (NONE) H 11/29/22 09:30 Discharge Plan Discharge Patient Disposition: Home Clinical Impression: DUB (dysfunctional uterine bleeding), Dysmenorrhea Condition: Stable Prescriptions: No Action gabapentin 300 mg capsule See Rx Instructions .ROUTE .COMPLEX Dose Instruction: TAKE ONE CAPSULE BY MOUTH TWICE DAILY FOR chronic pain Rx Instructions: TAKE ONE CAPSULE BY MOUTH three times DAILY FOR chronic pain acetaminophen [Tylenol Extra Strength] 500 mg tablet 1,000 mg PO Q6H PRN (Reason: Pain) duloxetine 60 mg capsule,delayed release(DR/EC) 60 mg PO DAILY Qty: 60 2RF Rx Instructions: To be taken with 30 mg for total of 90 mg. duloxetine 30 mg capsule,delayed release(DR/EC) 30 mg PO DAILY Qty: 30 2RF ibuprofen 200 mg tablet 800 mg PO DAILY PRN (Reason: Pain) mometasone 0.1 % cream 1 applic topical TID Qty: 45 3RF phenazopyridine [Pyridium] 200 mg tablet 200 mg PO Q8H PRN (Reason: pain) Qty: 6 0RF mupirocin 2 % ointment 1 applic topical TID Qty: 45 0RF Rx Instructions: APPLY 3 TIMES DAILY naproxen [Naprosyn] 500 mg tablet 500 mg PO BID PRN (Reason: pain) Qty: 20 0RF trazodone 100 mg tablet 100 mg PO QPM bacitracin 500 unit/gram ointment See Rx Instructions .ROUTE .COMPLEX PRN (Reason: right breast ) Rx Instructions: apply TO THE breast two TO three times PER DAY ondansetron 4 mg tablet,disintegrating 4 mg PO Q8H PRN (Reason: nausea and vomiting) Qty: 12 0RF Discharge Orders: Discharge ED (Routine); Ordered 11/29/22 Ordered By: Wilder Newman Referrals: Miladis Diaz DO [Primary Care Provider] - Patient Instructions: Abdominal Pain (ED), Opioid Safety, Pain Management Activity Restrictions/Additional Instructions: Follow-up with your LASER SPECIALIST within 1 to 2 days to discuss your additional irregular uterine bleeding Coding Level of Care Code ED Packing Clerk for Lg Diaz
[2022-11-29] MEDS: ondansetron 2 mg/ML SDV 2 mL 4 MG IVP (09:38)
[2022-11-29 09:43] VITALS: BP 159/83; PULSE 67; O2SAT 96
[2022-11-29 10:05] LABS: Basophils % 0.3 %; Eosinophils # 0.1 10^3/uL (0.0-0.8); Eosinophils % 1.4 %; Hemoglobin 13.9 g/dL (11.5-15.3); Lymphocytes # 2.2 10^3/uL (0.8-4.8); Lymphocytes % 33.1 %; Mean Corpuscular HGB Conc 33.1 g/dL (30.0-36.0); Mean Corpuscular Hemoglobin 29.2 pg (28.0-34.0); Mean Corpuscular Volume 88.2 fl (81-99); Mean Platelet Volume 10.4 fL (7.4-10.4); Monocytes # 0.4 10^3/uL (0.2-0.9); Monocytes % 6.2 %; Neutrophils # 3.83 10^3/uL (1.8-7.7); Neutrophils % 58.8 %; Nucleated Red Blood Cells % 0 %; Platelet Count 336 10^3/cmm (130-400); Red Blood Count 4.76 10^6/uL (4.1-5.3); Red Cell Distribution Width 12.5 % (12.1-15.1); White Blood Count 6.5 10^3/uL (4.0-10.0)
[2022-11-29 10:11] LABS: HCG Qualitative Urine. Negative (Negative)
[2022-11-29 10:35] LABS: Blood Urine 3+ (Negative); Glucose Urine UA Norm (Normal); Ketones Urine Negative (Negative); Nitrate Urine Negative (Negative); Protein Urine 1+ (Negative); Urine Appearance Hazy (CLEAR); Urine Color Red (Yellow); pH Urine 8 (5-7)
[2022-11-29 10:37] VITALS: BP 166/90; PULSE 72; O2SAT 98
[2022-11-29 10:39] LABS: Bilirubin Urine Neg (Negative); Sulfosalicylic Acid Urine Positive (Negative)
[2022-11-29 10:40] LABS: Add Urine Culture? Yes; Bacteria Urine 1+ /hpf; Leukocyte Esterase Urine Trace (Negative); RBC Urine TOO NUMEROUS TO CNT /hpf (0-2); Squamous Epithelial Cell Urine 0-4 /hpf (0-5); Urobilinogen Urine Norm (Negative); WBC Urine 0-4 /hpf (0-5)
[2022-11-29 10:44] LABS: Alanine Aminotransferase 12 U/L (0-33); Albumin Level 3.7 g/dL (3.5-5.2); Alkaline Phosphatase 72 U/L (35-105); Anion Gap 14.3 (5-19); Aspartate Amino Transferase 13 U/L (0-32); Blood Urea Nitrogen 8 mg/dL (6-20); Calcium 9.2 mg/dL (8.5-10.5); Carbon Dioxide 22 mmol/L (22-29); Chloride 105 mmol/L (98-107); Glomerular Filtration Rate 84.2 mL/min (90-130); Glucose 93 mg/dL (65-115); Osmolality Calculated 282 mOsm/kg (285-295); Potassium 4.3 mmol/L (3.5-5.1); Sodium 137 mmol/L (136-145); Total Bilirubin 0.2 mg/dL (0.15-1.2); Total Protein 6.7 g/dL (6.6-8.7)
[2022-11-29 10:48] LABS: Procalcitonin 0.02 ng/mL (0-0.5)
--- NOTE | 2022-12-01 10:18 | DCPLANNER ---
sales advisory manager had message to speak with patient about getting established with a new TROUBLE CLERK physician. sales advisory manager spoke with patient, and she stated that she is going to stay with her current TROUBLE CLERK provider.
== END 2022-11-29 10:39 | disposition home or self-care (01) ==
PROVIDERS: Emergency Provider Internal Medicine; PCP Family Medicine
DX: N93.8 Other specified abnormal uterine and vaginal bleeding (principal); N94.6 Dysmenorrhea, unspecified
CPT/HCPCS: 80053; 81001; 81025; 84145; 85025; 85610; 85730; 87086; 96374; 99284; J2405

== ENCOUNTER 2022-12-23 07:37 | Emergency (ER) | payer SELFPAY ==
[2022-12-23 07:41] VITALS: BP 139/77; PULSE 76; RESP 16; TEMP 36.8; O2SAT 99; BMI 52.7
--- NOTE | 2022-12-23 07:42 | ECG_ITS ---
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 Measurements Intervals [place] Rate: 71 P: 4 ME: 138 QRS: 5 QRSD: 97 T: 22 QT: 408 QTc: 444 Interpretive Statements SINUS RHYTHM LOW QRS VOLTAGE IN PRECORDIAL LEADS [QRS DEFLECTION < 1.0 mV IN CHEST LEADS] Compared to ECG 11/25/2022 09:56:16 No significant changes Electronically Signed On 12-23-2022 23:56:01 CDT by José Luis Earl M.D. [id number] f
--- NOTE | 2022-12-23 07:59 | XR_ITS ---
WS: [id number] Exam: XR hip RT 2-3V wo/w pel* [id number] Date/Time of Exam: 12/23/2022 8:05 AM Reason For Exam: fall right hip pain Findings: No fractures or bone anomalies are noted. No unusual soft tissue masses or calcifications are seen. The bony elements of the hip are in adequate alignment. IMPRESSION: Negative RIGHT hip.
--- NOTE | 2022-12-23 08:00 | ED_ITS ---
HPI - Syncope General: Chief Complaint: Syncope Stated Complaint: Syncope episode/Fall /RT hip pain Time Seen by Provider: 12/23/22 07:50 History of Present Illness: Patient presents to the ER with complaints of possible syncopal episode with fall and right hip pain. Patient states she may have had a seizure but does not have a history of having seizures. Patient also complaining of vaginal bleeding. She has has a diagnosis of dysfunctional uterine bleeding and has a scheduled appointment with Dr. Jorge on the of next month for a hysterectomy. Review of Systems General: Reports: 10 or more systems reviewed and unremarkable except in HPI and below PFSH ED PFSH: Medical History Ankle pain Chronic pain of left lower extremity Fracture of fourth metatarsal bone of left foot Fracture of third metatarsal bone of left foot Low back strain Psychiatric care Family History Family/Other Hyperlipidemia maternal Mother Hypertension Grandmother Stroke maternal Ovarian cancer maternal Uterine cancer maternal Denies family history of Colon cancer Diabetes Heart disease Breast cancer Thyroid condition Social History Substance/Drug Use: former Date of last use: Marijuana- 16 yrs ago. Physical Exam Const: COMMON NORMALS: no acute distress, average body habitus, patient oriented x3, no limitations, healthy appearing, alert and well nourished HENMT: COMMON NORMALS: normocephalic, atraumatic, hearing grossly normal bilaterally, external ears normal, Normal external nose present and moist oral mucous membranes HEAD & SCALP: normocephalic and atraumatic NOSE: Normal external nose present EXTERNAL EAR: Yes external ears normal Eye: COMMON NORMALS: Equal, round and reactive pupils present, EOMs intact bilaterally, conjunctivae normal and no scleral icterus CONJUNCTIVA: Yes conjunctivae normal PUPIL: Yes Equal, round and reactive pupils present Neck/C-Spine: COMMON NORMALS: full ROM, no lymphadenopathy, supple, no meningeal signs, no JVD and Thyroid normal THYROID: Thyroid normal Lymph: LYMPHATIC: no lymphadenopathy noted Chest: COMMONS NORMALS: normal inspection of the chest and normal palpation of entire chest wall Resp: COMMON NORMALS: normal respiratory effort, No retractions, No use of accessory muscles and clear to auscultation bilaterally AUSCULTATION: clear t o auscultation bilaterally Cardio: COMMON NORMALS: no JVD, regular rate, regular rhythm, S1 normal heart sound present, S2 normal heart sound present, No gallops present (Cardio), No clicks present (Cardio), No murmurs present (Cardio) and No rub (Cardio) RATE: regular rate RHYTHM: regular rhythm HEART SOUNDS: S1 normal heart sound present and S2 normal heart sound present GI: COMMON NORMALS: Normal to inspection, nondistended, normoactive bowel sounds present, Soft to palpation, non-tender, No hepatosplenomegaly present and no masses PALPATION: Yes Soft to palpation and Yes No hepatosplenomegaly present Neuro: COMMON NORMALS: patient oriented x3 SENSORIUM/ORIENTATION: Yes alert MENINGEAL SIGNS: Yes no meningeal signs Course Vital Signs: Vital signs: Vital Signs Temperature 98.2 F 12/23/22 07:41 Pulse Rate 76 12/23/22 07:41 Respiratory Rate 16 12/23/22 07:41 Blood Pressure 139/77 12/23/22 07:41 Pulse Oximetry 99 12/23/22 07:41 Oxygen Delivery Me thod Room Air 12/23/22 07:41 MDM - Syncope Medical Decision Making Patient presents to the ER with complaints of syncope and fall with right hip pain. Patient says she may have had a seizure at that time. Lab work was obtained physical exam was performed prolactin was normal as well as the majority of her lab work was totally benign EKGs were benign. Patient be diagnosed with syncopal episode is unlikely that it had a seizure due to prola ctin that was normal. Patient be discharged home to follow-up with her PCP on an as-needed basis Differential Diagnosis Unlikely syncope due to orthostatic hypotension, vasovagal syncope, complete atrioventricular block, subarachnoid hemorrhage, pulmonary embolism or dehydration Medical Records I reviewed the patient's medical records. Lab Data I reviewed the patient's lab results. 12/23/22 08:00 12/23/22 08:00 Laboratory Results WBC 7.23 10^3/uL (3.29-11.43) 12/23/22 08:00 RBC 4.77 10^6/uL (3.85-5.65) 12/23/22 08:00 Hgb 14.40 g/dL (11.27-16.99) 12/23/22 08:00 Hct 42.7 % (36-47) 12/23/22 08:00 MCV 89.5 fl (85-98) 12/23/22 08:00 MCH 30.2 pg (27-33) 12/23/22 08:00 MCHC 33.7 g/dL (30-55) 12/23/22 08:00 RDW 12.8 % (12.1-15.1) 12/23/22 08:00 Plt Count 290 10^3/cmm (157-399) 12/23/22 08:00 MPV 10.4 fL (7.4-10.4) 12/23/22 08:00 Neut % (Auto) 60.2 % 12/23/22 08:00 Lymph % (Auto) 30.3 % 12/23/22 08:00 [place] % (Auto) 6.9 % 12/23/22 08:00 Eos % (Auto) 1.8 % 12/23/22 08:00 Baso % (Auto) 0.4 % 12/23/22 08:00 Neut # (Auto) 4.35 10^3/uL (1.8-7.7) 12/23/22 08:00 Lymph # (Auto) 2.2 10^3/uL (0.8-4.8) 12/23/22 08:00 [place] # (Auto) 0.5 10^3/uL (0.2-0.9) 12/23/22 08:00 Eos # (Auto) 0.1 10^3/uL (0.0-0.8) 12/23/22 08:00 Baso # (Auto) 0.0 10^3/uL (0.0-0.1) 12/23/22 08:00 Nucleated RBC % (auto) 0 % 12/23/22 08:00 Nucleated RBCs # 0.0 /100WBC 12/23/22 08:00 Sodium 135 mmol/L (136-145) L 12/23/22 08:00 Potassium 4.2 mmol/L (3.5-5.1) 12/23/22 08:00 Chloride 104 mmol/L (98-107) 12/23/22 08:00 Carbon Dioxide 22 mmol/L (22-29) 12/23/22 08:00 Anion Gap 13.2 (5-19) 12/23/22 08:00 BUN 8 mg/dL (6-20) 12/23/22 08:00 Creatinine 0.9 mg/dL (0.5-0.9) 12/23/22 08:00 GFR Calculation 73.5 mL/min (90-130) L 12/23/22 08:00 Glucose 97 mg/dL (65-115) 12/23/22 08:00 Calculated Osmolality 278 mOsm/kg (285-295) L 12/23/22 08:00 Calcium 8.9 mg/dL (8.5-10.5) 12/23/22 08:00 Magnesium 2.1 mg/dL (1.7-2.3) 12/23/22 08:00 Total Bilirubin 0.2 mg/dL (0.15-1.2) 12/23/22 08:00 AST 12 U/L (0-32) 12/23/22 08:00 ALT 13 U/L (0-33) 12/23/22 08:00 Alkaline Phosphatase 84 U/L (35-105) 12/23/22 08:00 Troponin T Baseline 6 ng/L (0-10) 12/23/22 08:00 Troponin T 120 Minute 6 ng/L (0-10) 12/23/22 10:00 Delta Troponin T 0 ABS# (0-10) 12/23/22 10:00 Total Protein 6.8 g/dL (6.6-8.7) 12/23/22 08:00 Albumin 4.0 g/dL (3.5-5.2) 12/23/22 08:00 Globulin 2.8 g/dL (1.3-4.6) 12/23/22 08:00 Prolactin 19.04 ng/mL (4.8-23.3) 12/23/22 08:00 EKG Data EKG 1: I personally reviewed and interpreted this EKG as follows: EKG interpretation date: 12/23/22 EKG interpretation time: 07:42 Prior EKG tracings: not available for review Interpretation: EKG showed ventricular rate 71 beats minute, [place] interval 138, QRS duration 97, QTc of 430, sinus rhythm, no ST-T wave changes EKG 2: I personally reviewed and interpreted this EKG as follows: EKG interpretation date: 12/23/22 EKG interpretation time: 09:59 Prior EKG tracings: available for review Interpretation: EKG showed ventricular rate 63 bpm, [place] interval 143, QRS duration 97, QTc 448, sinus rhythm, no ST-T wave changes Discharge Plan Discharge Patient Disposition: Home Clinical Impression: Syncope and collapse, Acute pain of right hip Fall Qualifiers: Encounter type: initial encounter Qualified Code(s): W19.XXXA - Unspecified fall, initial encounter Condition: Stable Prescriptions: No Action gabapentin 300 mg capsule 300 mg PO TID Dose Instruction: TAKE ONE CAPSULE BY MOUTH TWICE DAILY FOR chronic pain acetaminophen [Tylenol Extra Strength] 500 mg tablet 1,000 mg PO Q6H PRN (Reason: Pain) duloxetine 60 mg capsule,delayed release(DR/EC) 60 mg PO DAILY Qty: 60 2RF Rx Instructions: To be taken with 30 mg for total of 90 mg. duloxetine 30 mg capsule,delayed release(DR/EC) 30 mg PO DAILY Qty: 30 2RF ibuprofen 200 mg tablet 800 mg PO DAILY PRN (Reason: Pain) naproxen [Naprosyn] 500 mg tablet 500 mg PO BID PRN (Reason: pain) Qty: 20 0RF trazodone 100 mg tablet 100 mg PO QPM Discharge Orders: Discharge ED (Routine); Ordered 12/23/22 Ordered By: Harpreet Yadav Referrals: Miladis Diaz DO [Primary Care Provider] - 1 week Patient Instructions: Syncope (ED) Activity Restrictions/Additional Instructions: Please follow-up with your family practice doctor in the next week for further evaluation and testing. Coding Level of Care Code ED Lumber Planer for Lg Diaz
[2022-12-23 08:11] LABS: Basophils % 0.4 %; Eosinophils # 0.1 10^3/uL (0.0-0.8); Eosinophils % 1.8 %; Hematocrit 42.7 % (36-47); Lymphocytes # 2.2 10^3/uL (0.8-4.8); Lymphocytes % 30.3 %; Mean Corpuscular HGB Conc 33.7 g/dL (30-55); Mean Corpuscular Hemoglobin 30.2 pg (27-33); Mean Corpuscular Volume 89.5 fl (85-98); Mean Platelet Volume 10.4 fL (7.4-10.4); Monocytes # 0.5 10^3/uL (0.2-0.9); Monocytes % 6.9 %; Neutrophils # 4.35 10^3/uL (1.8-7.7); Neutrophils % 60.2 %; Nucleated Red Blood Cells % 0 %; Platelet Count 290 10^3/cmm (157-399); Red Blood Count 4.77 10^6/uL (3.85-5.65); Red Cell Distribution Width 12.8 % (12.1-15.1); White Blood Count 7.23 10^3/uL (3.29-11.43)
[2022-12-23] MEDS: sodium chloride 0.9% 1,000 ML 999 ML IV (08:18)
[2022-12-23 08:26] LABS: Alanine Aminotransferase 13 U/L (0-33); Alkaline Phosphatase 84 U/L (35-105); Aspartate Amino Transferase 12 U/L (0-32); Blood Urea Nitrogen 8 mg/dL (6-20); Calcium 8.9 mg/dL (8.5-10.5); Carbon Dioxide 22 mmol/L (22-29); Chloride 104 mmol/L (98-107); Globulin 2.8 g/dL (1.3-4.6); Glomerular Filtration Rate 73.5 mL/min (90-130); Glucose 97 mg/dL (65-115); Magnesium 2.1 mg/dL (1.7-2.3); Osmolality Calculated 278 mOsm/kg (285-295); Sodium 135 mmol/L (136-145); Total Bilirubin 0.2 mg/dL (0.15-1.2); Total Protein 6.8 g/dL (6.6-8.7); Troponin(5th) Baseline 6 ng/L (0-10)
[2022-12-23 08:38] LABS: Anion Gap 13.2 (5-19); Potassium 4.2 mmol/L (3.5-5.1)
[2022-12-23 09:26] LABS: Prolactin 19.04 ng/mL (4.8-23.3)
--- NOTE | 2022-12-23 09:59 | ECG_ITS ---
[facility] Test Date: 2022-12-23 Pat Name: Tavo Johnson Department: Room: Gender: Female Kitchen Stewardess: : 1990 Requested By: Harpreet Yadav Order Number: [id number] Jeana MD: José Luis Earl M.D. Measurements Intervals [place] Rate: 63 P: 7 [place]: 143 QRS: 5 QRSD: 97 T: 22 QT: 441 QTc: 452 Interpretive Statements SINUS RHYTHM LOW QRS VOLTAGE IN PRECORDIAL LEADS [QRS DEFLECTION < 1.0 mV IN CHEST LEADS] Compared to ECG 12/23/2022 07:42:43 No significant changes Electronically Signed On 12-24-2022 0:02:59 CDT by José Luis Earl M.D. [id number]
[2022-12-23 10:29] LABS: Troponin 5 2HR 6 ng/L (0-10); Troponin 5 2HR Delta 0 ABS# (0-10)
[2022-12-23] MEDS: ketorolac 30 mg/mL INJ IVP (10:45)
== END 2022-12-23 11:36 | disposition home or self-care (01) ==
PROVIDERS: Emergency Provider Emergency Medicine; PCP Family Medicine
DX: R55 Syncope and collapse (principal); M25.551 Pain in right hip; W19.XXXA Unspecified fall, initial encounter
CPT/HCPCS: 73502; 80053; 83735; 84146; 84484; 85025; 93005; 96361; 96374; 99285; J1885; J7030

== ENCOUNTER 2023-01-02 10:36 | Emergency (ER) | payer MEDICAID, SELFPAY ==
[2023-01-02 10:39] VITALS: BP 156/84; PULSE 71; RESP 18; TEMP 36.8; O2SAT 97; BMI 51.0
[2023-01-02 11:00] VITALS: BP 156/84
--- NOTE | 2023-01-02 11:03 | PC.PHAR ---
pt is out of most of her medications
--- NOTE | 2023-01-02 11:12 | W.ED.SEIZURE ---
HPI - Seizure General: Chief Complaint: Seizure Stated Complaint: seizure Time Seen by Provider: 01/02/23 10:40 Source: patient Mode of arrival: ambulatory History of Present Illness: HPI Narrative: 32-year-old female who presents to the emergency room with complaints of a seizure. When asked about specific details she tells me that she is stressed out because she is scheduled to have a hysterectomy. She was on the porch of her home venting to a child when she states she does not remember what happened next the next thing she can recall she was being placed in a lawn chair reclining. She did not strike her head she did not lose consciousness she did not bite her tongue no loss of bowel or bladder control. Family member said she was having a panic attack before this episode happened. When she came to she can remember exactly what been happening prior to the episode. She had a similar episode on 829 was in the emergency room she related that is a seizure reviewing that note it was thought to be a syncopal episode related to hip pain. MD complaint: seizure Onset (ago): minute(s) Associated symptoms: Deny chest pain, chills, fever(s) or malaise Review of Systems Const: Denies: fever(s), chills, body aches, change in appetite, fatigue or malaise ENMT: Denies: throat pain, ear or mastoid pain, nasal discharge or nasal congestion Card: Denies: chest pain, edema, dyspnea on exertion or orthopnea Resp: Denies: dyspnea, productive cough or non-productive cough GI: Denies: abdominal pain, nausea, vomiting, hematemesis, coffee ground emesis, diarrhea, constipation, bloating, hematochezia or melena : Denies: flank pain, difficulty voiding, dysuria, urinary frequency or urinary urgency Skin/Breast: Denies: rash or pruritus PFSH ED PFSH: Medical History Ankle pain Chronic pain of left lower extremity Fracture of fourth metatarsal bone of left foot Fracture of third metatarsal bone of left foot Low back strain Psychiatric care Family History Family/Other Hyperlipidemia maternal Mother Hypertension Grandmother Stroke maternal Ovarian cancer maternal Uterine cancer maternal Denies family history of Colon cancer Diabetes Heart disease Breast cancer Thyroid condition Social History Substance/Drug Use: former Date of last use: Marijuana- 16 yrs ago. Physical Exam Const: GENERAL APPEARANCE: cooperative and comfortable ORIENTATION/CONSCIOUSNESS: Yes awake, Yes oriented to person, Yes oriented to place and Yes oriented to time HENMT: COMMON NORMALS: normocephalic, atraumatic and hearing grossly normal bilaterally HEAD & SCALP: normocephalic and atraumatic Resp: COMMON NORMALS: normal respiratory effort, No retractions, No use of accessory muscles and clear to auscultation bilaterally AUSCULTATION: clear to auscultation bilaterally Cardio: COMMON NORMALS: regular rate, regular rhythm and No murmurs present (Cardio) RATE: regular rate RHYTHM: regular rhythm GI: COMMON NORMALS: Soft to palpation and No hepatosplenomegaly present AUSCULTATION: Yes normoactive bowel sounds PALPATION: Yes Soft to palpation, No Tenderness to palpation present (GI), No Guarding due to palpation present (GI) and Yes No hepatosplenomegaly present Extremity: COMMON NORMALS: normal to inspection, capillary refill normal, no clubbing, cyanosis or edema, no calf tenderness and no pedal edema Neuro: SENSORIUM/ORIENTATION: Yes oriented to person, Yes oriented to place and Yes oriented to time Skin: COMMON NORMALS: no rashes or lesions noted GENERAL SKIN EXAM: no rashes or lesions noted Course Vital Signs: Vital signs: Vital Signs Temperature 98.2 F 01/02/23 10:39 Pulse Rate 71 01/02/23 10:39 Respiratory Rate 18 01/02/23 10:39 Blood Pressure 156/84 01/02/23 11:00 Pulse Oximetry 97 01/02/23 10:39 Oxygen Delivery Me thod Room Air 01/02/23 10:39 MDM - Seizure MDM Narrative Medical decision making narrative: Discussed findings with the patient. Believe she is having functional episodes from her description it does not sound like she had a true seizure. Family member with her at the time stated she was having a panic attack before this happened. I suspect it may have 1 what happened previously as well. We will discharge her home refer back to [facility] we will set up an outpatient neurology as well. Medical Records Attestation: I reviewed the patient's medical records. Lab Data Attestation: I reviewed the patient's lab results. 01/02/23 11:14 01/02/23 11:14 Labs: Laboratory Results WBC 7.11 10^3/uL (3.29-11.43) 01/02/23 11:14 RBC 4.63 10^6/uL (3.85-5.65) 01/02/23 11:14 Hgb 13.90 g/dL (11.27-16.99) 01/02/23 11:14 Hct 42.1 % (36-47) 01/02/23 11:14 MCV 90.9 fl (85-98) 01/02/23 11:14 MCH 30.0 pg (27-33) 01/02/23 11:14 MCHC 33.0 g/dL (30-55) 01/02/23 11:14 RDW 12.8 % (12.1-15.1) 01/02/23 11:14 Plt Count 296 10^3/cmm (157-399) 01/02/23 11:14 MPV 10.8 fL (7.4-10.4) H 01/02/23 11:14 Neut % (Auto) 60.5 % 01/02/23 11:14 Lymph % (Auto) 29.3 % 01/02/23 11:14 Starr % (Auto) 7.0 % 01/02/23 11:14 Eos % (Auto) 2.7 % 01/02/23 11:14 Baso % (Auto) 0.4 % 01/02/23 11:14 Neut # (Auto) 4.30 10^3/uL (1.8-7.7) 01/02/23 11:14 Lymph # (Auto) 2.1 10^3/uL (0.8-4.8) 01/02/23 11:14 Starr # (Auto) 0.5 10^3/uL (0.2-0.9) 01/02/23 11:14 Eos # (Auto) 0.2 10^3/uL (0.0-0.8) 01/02/23 11:14 Baso # (Auto) 0.0 10^3/uL (0.0-0.1) 01/02/23 11:14 Nucleated RBC % (auto) 0 % 01/02/23 11:14 Nucleated RBCs # 0.0 /100WBC 01/02/23 11:14 Sodium 135 mmol/L (136-145) L 01/02/23 11:14 Potassium 4.0 mmol/L (3.5-5.1) 01/02/23 11:14 Chloride 105 mmol/L (98-107) 01/02/23 11:14 Carbon Dioxide 21 mmol/L (22-29) L 01/02/23 11:14 Anion Gap 13.0 (5-19) 01/02/23 11:14 BUN 11 mg/dL (6-20) 01/02/23 11:14 Creatinine 0.7 mg/dL (0.5-0.9) 01/02/23 11:14 GFR Calculation 98.3 mL/min (90-130) 01/02/23 11:14 Glucose 88 mg/dL (65-115) 01/02/23 11:14 Calculated Osmolality 279 mOsm/kg (285-295) L 01/02/23 11:14 Lactic Acid 0.8 mmol/L (0.5-2.2) 01/02/23 11:42 Calcium 8.7 mg/dL (8.5-10.5) 01/02/23 11:14 Magnesium 2.4 mg/dL (1.7-2.3) H 01/02/23 11:14 Total Bilirubin 0.3 mg/dL (0.15-1.2) 01/02/23 11:14 AST 13 U/L (0-32) 01/02/23 11:14 ALT 12 U/L (0-33) 01/02/23 11:14 Alkaline Phosphatase 81 U/L (35-105) 01/02/23 11:14 Ammonia 47 umol/L (11-51) 01/02/23 11:14 Creatine Kinase 91 U/L (26-192) 01/02/23 11:14 Total Protein 6.7 g/dL (6.6-8.7) 01/02/23 11:14 Albumin 3.7 g/dL (3.5-5.2) 01/02/23 11:14 Globulin 3.0 g/dL (1.3-4.6) 01/02/23 11:14 Prolactin 10.51 ng/mL (4.8-23.3) 01/02/23 11:14 HCG, Qual Negative (Negative) 01/02/23 11:14 Discharge Plan Discharge Patient Disposition: Home Clinical Impression: Functional neurological symptom disorder with attacks or seizures Condition: Stable Prescriptions: New hydroxyzine HCl 25 mg tablet 25 mg PO Q6H PRN (Reason: anxiety) Qty: 14 0RF No Action gabapentin 300 mg capsule 300 mg PO TID Dose Instruction: TAKE ONE CAPSULE BY MOUTH TWICE DAILY FOR chronic pain acetaminophen [Tylenol Extra Strength] 500 mg tablet 1,000 mg PO Q6H PRN (Reason: Pain) duloxetine 60 mg capsule,delayed release(DR/EC) 60 mg PO DAILY Qty: 60 2RF Rx Instructions: To be taken with 30 mg for total of 90 mg. duloxetine 30 mg capsule,delayed release(DR/EC) 30 mg PO DAILY Qty: 30 2RF ibuprofen 200 mg tablet 800 mg PO DAILY PRN (Reason: Pain) naproxen [Naprosyn] 500 mg tablet 500 mg PO BID PRN (Reason: pain) Qty: 20 0RF trazodone 100 mg tablet 100 mg PO QPM Discharge Orders: Discharge ED (Routine); Ordered 01/02/23 Ordered By: Pro Vides Referrals: Miladis Diaz DO [Primary Care Provider] - Discharge Diet: Usual diet Discharge Activity: Resume usual activity Patient Instructions: Opioid Safety, Pain Management Activity Restrictions/Additional Instructions: [facility] Coding Level of Care Code ED Government Program Manager for Lg Diaz
[2023-01-02 11:19] LABS: Basophils % 0.4 %; Eosinophils # 0.2 10^3/uL (0.0-0.8); Eosinophils % 2.7 %; Hematocrit 42.1 % (36-47); Lymphocytes # 2.1 10^3/uL (0.8-4.8); Lymphocytes % 29.3 %; Mean Corpuscular Volume 90.9 fl (85-98); Mean Platelet Volume 10.8 fL (7.4-10.4); Monocytes # 0.5 10^3/uL (0.2-0.9); Neutrophils % 60.5 %; Nucleated Red Blood Cells % 0 %; Platelet Count 296 10^3/cmm (157-399); Red Blood Count 4.63 10^6/uL (3.85-5.65); Red Cell Distribution Width 12.8 % (12.1-15.1); White Blood Count 7.11 10^3/uL (3.29-11.43)
[2023-01-02 11:39] LABS: Alanine Aminotransferase 12 U/L (0-33); Albumin Level 3.7 g/dL (3.5-5.2); Alkaline Phosphatase 81 U/L (35-105); Aspartate Amino Transferase 13 U/L (0-32); Blood Urea Nitrogen 11 mg/dL (6-20); Calcium 8.7 mg/dL (8.5-10.5); Carbon Dioxide 21 mmol/L (22-29); Chloride 105 mmol/L (98-107); Creatine Phosphokinase 91 U/L (26-192); Glomerular Filtration Rate 98.3 mL/min (90-130); Glucose 88 mg/dL (65-115); Magnesium 2.4 mg/dL (1.7-2.3); Osmolality Calculated 279 mOsm/kg (285-295); Sodium 135 mmol/L (136-145); Total Bilirubin 0.3 mg/dL (0.15-1.2); Total Protein 6.7 g/dL (6.6-8.7)
[2023-01-02 11:41] LABS: Ammonia 47 umol/L (11-51)
[2023-01-02 11:42] LABS: HCG, Serum Qual Negative (Negative)
[2023-01-02 11:50] LABS: Prolactin 10.51 ng/mL (4.8-23.3)
[2023-01-02 12:04] LABS: Lactic Sepsis W/Reflex 0.8 mmol/L (0.5-2.2)
--- NOTE | 2023-01-05 11:51 | DCPLANNER ---
machining manager had message to schedule a follow up appointment for patient with neurology. machining manager sent patients information to the front office staff at neurology. Patients information will be printed and reviewed. Clinic will call patient with appointment information.
--- NOTE | 2023-01-05 11:52 | DCPLANNER ---
Addendum entered by Majo Leggett 01/06/23 08:44: manager of application development received the following message from [facility] regarding follow up appointment: called, left vm Original Note: manager of application development had message to schedule a follow up appointment for patient with [facility]. manager of application development sent patients information to the front office staff at [facility]. Patients information will be printed and reviewed. Clinic will call patient with appointment information.
== END 2023-01-02 12:18 | disposition home or self-care (01) ==
PROVIDERS: Emergency Provider Family Medicine; PCP Family Medicine
DX: R29.818 Other symptoms and signs involving the nervous system (principal)
CPT/HCPCS: 36415; 80053; 82140; 82550; 83605; 83735; 84146; 84703; 85025; 99283

== ENCOUNTER 2023-01-08 15:32 | Inpatient (IN) | payer SELFPAY ==
[2023-01-07 14:45] VITALS: BMI 52.0
[2023-01-08] VITALS (23 sets, daily range): BP systolic 122–160; BP diastolic 54–99; PULSE 72–101; RESP 15–20; TEMP 36.1–37; O2SAT 93–100
--- NOTE | 2023-01-08 01:02 | W.PM.OPSFHP ---
Same Day Surgery H&P Indication for Procedure/HPI DATE OF PROCEDURE: January 08, 2023 CHIEF COMPLAINT/INDICATIONFOR SURGICAL PROCEDURE: chronic severe menorrhagia PREOP DIAGNOSIS: chronic severe menorrhagia PLANNED PROCEDURE: Operation Date: 01/08/23 07:00 Proposed Procedures p Total Abdominal Hysterectomy 94332,N92.0(Not Applicable) - Shamir Jorge MD 32 y.o. SA1 had vasectomy Periods always very heavy Using pads every 30 minutes to 1 hour when on period Has been occurring for a long time Periods monthly, lasting 3-5 days Last six months have been even heavier Had tried OCs, patches, nexplanon, DMPA in the past without any relief States ?never wants to get ? wants hysterectomy States she ?wants everything out? Refuses OCs, Nexplanon, DMPA, mirena IUD, endometrial ablation Now scheduled for total abdominal hysterectomy Medications/Allergies* Home Medications Medication Instructions Recorded Confirmed Type acetaminophen 500 mg tablet 1,000 mg PO Q6H PRN Pain 01/16/22 01/07/23 History (Tylenol Extra Strength) ibuprofen 200 mg tablet 800 mg PO DAILY PRN Pain 01/16/22 01/07/23 History gabapentin 300 mg capsule 300 mg PO TID 07/21/22 01/07/23 History trazodone 100 mg tablet 100 mg PO QPM 11/19/22 01/07/23 History Allergies/Adverse Reactions Allergy/AdvReac Type Severity Reaction Status Date / Time Fish Containing Products Allergy Severe ALGY-Anaphy Verified 01/02/23 11:02 laxis fluoxetine [From Prozac] Allergy Intermediate ALGY-Hives Verified 01/02/23 11:02 cephalexin [From Keflex] Allergy Unknown Verified 01/02/23 11:02 ciprofloxacin [From Cipro] Allergy Unknown Verified 01/02/23 11:02 clarithromycin [From Biaxin] Allergy Unknown Verified 01/02/23 11:02 doxycycline Allergy Unknown Verified 01/02/23 11:02 Latex, Natural Rubber Allergy Unknown Verified 01/02/23 11:02 morphine Allergy Unknown Verified 01/02/23 11:02 Penicillins Allergy Unknown Verified 01/02/23 11:02 Pertinent History/Comorbid Conditions* Medical History (Updated 01/02/23 @ 12:09 by Pro Vides DO) Ankle pain Chronic pain of left lower extremity Fracture of fourth metatarsal bone of left foot Fracture of third metatarsal bone of left foot Low back strain Psychiatric care Family History (Updated 07/21/22 @ 15:27 by Elena Woods LPN) Ovarian cancer Grandmother maternal Hyperlipidemia Family/Other maternal Hypertension Mother Uterine cancer Grandmother maternal Stroke Grandmother maternal Denies family history of Colon cancer Diabetes Heart disease Breast cancer Thyroid condition Social History Substance/Drug Use: former Date of last use: Marijuana- 16 yrs ago. Pertinent Exam Findings alert, oriented x 3, clear to auscultation bilaterally and regular rate & rhythm Recommendations Surgery/Procedure today Other Plans: plan total abdominal hysterectomy Coding Level of Care Code Acute Code for Chg Fwd Diagnoses Time Spent (min) 15
[2023-01-08] MEDS: scopolamine 1.5 Patch 1 PATCH TRANSDERMA (06:34)
[2023-01-08] MEDS: sodium chloride 0.9% 1,000 ML 30 ML IV (06:34)
[2023-01-08] MEDS: enoxaparin 40 mg/0.4 mL Syringe SUBCUT (06:36)
--- NOTE | 2023-01-08 06:45 | W.PM.OPSUD ---
Surgery/Procedure H&P Update DATE OF PROCEDURE: January 08, 2023 DATE H&P PERFORMED: 01/08/23 H&P UPDATE INFORMATION: I have reviewed H&P completed within last 30 days, I have examined patient prior to procedure and No changes to prior documentation PREOP DIAGNOSIS: menorrhagia PRIMARY INDICATION FOR PROCEDURE: menorrhagia PLANNED PROCEDURE: Operation Date: 01/08/23 07:00 Proposed Procedures p Total Abdominal Hysterectomy 45239,N92.0(Not Applicable) - Shamir Jorge MD
--- NOTE | 2023-01-08 07:35 | SUR.OPER ---
Nugent placed by Cj Woodson surgical training specialist, witnessed by Beverly Becker RN.
[2023-01-08 08:03] LABS: OR HCG Qualitative Urine Negative (Negative)
--- NOTE | 2023-01-08 08:53 | ANES.PREANE2 ---
Pre-Anesthetic Assessment Height/Weight: Height 1.55 m Weight 124.738 kg Temp Pulse Resp BP Pulse Ox O2 Del Method 97.4 F L 76 18 158/95 98 Room Air 01/08/23 06:16 01/08/23 06:16 01/08/23 06:16 01/08/23 06:16 01/08/23 06:16 01/08/23 06:16 Preop Diagnosis: menorrhagia Operation Date: 01/08/23 07:00 Proposed Procedures p Total Abdominal Hysterectomy 33675,N92.0(Not Applicable) - Shamir Jorge MD Familial anesthetic complications: none Was Beta Alessandro taken within 24 hours: N/A Was Clonidine taken within 24 hours: N/A Last intake: Intake Last Liquid Date 01/07/23 Last Liquid Time 20:00 Last Solid Date 01/07/23 Last Solid Time 20:00 Social Tobacco and No alcohol Exam alert, oriented x 3 and regular rate & rhythm Airway Submandibular: within normal limits Cervical ROM: within normal limits Mallampati: Class II Dentition: chipped Comments: Comments: Missing most, very poor dentition Pulmonary Chronic Obstructive Pulmonary Disease Metabolic Morbid Obesity [facility] Lower Back Pain and Osteoarthritis/DJD Neuropsych Anxiety and Depression Anesthetic Plan ASA status: 3 Anesthesia: General Medications/Allergies Home Medications Medication Instructions Recorded Confirmed Last Taken Type acetaminophen 500 mg tablet 1,000 mg PO Q6H PRN Pain 01/16/22 01/07/23 12/17/22 History (Tylenol Extra Strength) duloxetine 30 mg capsule,delayed 30 mg PO DAILY #30 caps 01/16/22 01/07/23 01/07/23 Rx release duloxetine 60 mg capsule,delayed 60 mg PO DAILY #60 caps 01/16/22 01/07/23 01/07/23 Rx release ibuprofen 200 mg tablet 800 mg PO DAILY PRN Pain 01/16/22 01/07/23 12/24/22 History naproxen 500 mg tablet (Naprosyn) 500 mg PO BID PRN pain #20 tabs 03/13/22 01/07/23 12/24/22 Rx gabapentin 300 mg capsule 300 mg PO TID 07/21/22 01/07/23 01/07/23 History trazodone 100 mg tablet 100 mg PO QPM 11/19/22 01/07/23 01/06/23 History hydroxyzine HCl 25 mg tablet 25 mg PO Q6H PRN anxiety #14 tabs 01/02/23 01/07/23 01/03/23 Rx Allergies Allergy/AdvReac Type Severity Reaction Status Date / Time Fish Containing Products Allergy Severe ALGY-Anaphy Verified 01/08/23 06:07 laxis fluoxetine [From Prozac] Allergy Intermediate ALGY-Hives Verified 01/08/23 06:07 cephalexin [From Keflex] Allergy Unknown Verified 01/08/23 06:07 ciprofloxacin [From Cipro] Allergy Unknown Verified 01/08/23 06:07 clarithromycin [From Biaxin] Allergy Unknown Verified 01/08/23 06:07 doxycycline Allergy Unknown Verified 01/08/23 06:07 Latex, Natural Rubber Allergy Unknown Verified 01/08/23 06:07 morphine Allergy Unknown Verified 01/08/23 06:07 Penicillins Allergy Unknown Verified 01/08/23 06:07 Current Medications Generic Name Dose Route Start Last Admin Trade Name Freq PRN Reason Stop Dose Admin Sodium Chloride 1,000 mls @ 30 mls/hr 01/08/23 06:15 01/08/23 06:34 Sodium Chloride 0.9% IV 01/09/23 06:14 30 mls/hr .Q24H KADE Administration PFSH Anesthesia Medical History Ankle pain Chronic pain of left lower extremity Fracture of fourth metatarsal bone of left foot Fracture of third metatarsal bone of left foot Low back strain Psychiatric care Family History Family/Other Hyperlipidemia maternal Mother Hypertension Grandmother Stroke maternal Ovarian cancer maternal Uterine cancer maternal Denies family history of Colon cancer Diabetes Heart disease Breast cancer Thyroid condition Social History Substance/Drug Use: former Date of last use: Marijuana- 16 yrs ago. Female Reproductive History Date of last menstrual period: 12/24/22 Data Anesthesia Cardiac Studies: No Data to Display
[2023-01-08] MEDS: fentaNYL 50 mcg/mL INJ 2mL IVP (09:52)
[2023-01-08] MEDS: oxyCODONE-APAP 5-325 mg Tablet 1 TAB PO (11:30)
--- NOTE | 2023-01-08 14:04 | ANE.PACU2 ---
Inpatient post-anesthesia follow up: Airway intact: Yes Vital signs: Temperature 97.2 F Pulse Rate 82 Respiratory Rate 18 Blood Pressure 151/54 Pulse Oximetry 96 Oxygen Delivery Me thod Room Air Oxygen Flow Rate 6 Fraction of Inspir ed Oxygen Hydration adequate: Yes Nausea and vomiting: No Pain level: 3 Mental status: Baseline
--- NOTE | 2023-01-08 15:35 | PM.OP ---
Operative Report Date of procedure: January 08, 2023 Pre-op diagnosis: chronic severe menorrhagia Post-op diagnosis: same Post-op findings: uterus normal sized 2 cm right paratubal cyst Normal fallopian tubes Normal ovaries Normal and intact bladder Procedure done: Total abdominal hysterectomy Removal of 2 cm right paratubal cyst Implants: none Specimens removed/disposition: uterus right paratubal cyst Surgeon: Shamir Jorge MD Creative Services Intern: Manoj Aguilera MD Anesthesia: General Estimated blood loss (mL): 125 Complications: none Condition: stable Disposition: PACU Brief History: 32 y.o. SA1 Periods always very heavy long history of severe menorrhagia scheduled for total abdominal hysterectomy Procedure: Informed consent obtained. The patient was taken to the operating room and placed supine on the table. General endotracheal anesthesia was induced. The abdomen was prepped and draped in the usual sterile fashion. A martins catheter was placed which drained clear urine. A pfannenstiel incision was made over an old scar and carried down through skin and subcutaneous tissue and fascia. The fascia was sharply incised. The rectus muscles were and the abdomen was entered bluntly in the midline. The pelvic contents were visualized and examined. An Erick-O retractor was placed. The bowels were packed out of the way. The Enseal device was used throughout for vessel sealing and cutting. The hysterectomy was begun by dividing and ligating the round ligaments bilaterally. The infundibulopelvic ligaments were divided and skeletonized bilaterally. The ovaries were preserved by dividing the uterus from the uteroovarian ligaments. The vesicouterine peritoneal fold was incised in a transverse curvilinear fashion and sharply dissected downward mobilizing the bladder off the lower uterine segment. The uterine vessels were skeletonized and bilaterally divided and ligated. The procedure was carried down on both sides of the uterus until the cardinal uterosacral ligament was reached. The cervix was then incised. The vaginal cuff was identified and the mucosa was from the cervix. In this fashion, the uterus was removed leaving the vaginal cuff. The vaginal cuff was identified and the mucosa was sewn with O-Vicryl. A 2 cm benign-appearing right paratubal cyst was removed using the Enseal device. There was no bleeding. The pelvis was inspected and irrigated. There was no bleeding. The abdominal packs were removed as was the retractor. The fascia was then closed with a continuous stitch of O-Vicryl. The subcutaneous tissue was irrigated and inspected for hemostasis. Interrupted stitches of 2-O plain were placed in the subcutaneous tissue. The skin was then reapproximated using Insorb absorbable subcuticular skin cristofer. The patient was then placed supine, extubated, and taken to the recovery room. Postoperative condition: stable EBL: 125 cc Complications: none Sponge, needle, instruments counts were correct x two.
--- NOTE | 2023-01-08 15:38 | PC.NURSE ---
martins emptied, report called to christine {[id number]} and pt transferred via gurney to room 261. Pt assisted to chair, martins to gravity with clear fluid in bag and care turned over to nurse Christine.
[2023-01-08] MEDS: gabapentin 300 mg Capsule PO ×2 (15:46→20:15)
[2023-01-08] MEDS: dextrose 5%-lactated ringers 1,000 ML 125 ML IV ×2 (15:46→22:08)
[2023-01-08] MEDS: docusate sodium 100 mg Capsule PO (17:22)
[2023-01-08] MEDS: trazodone 100 mg Tablet PO (18:46)
[2023-01-08] MEDS: nicotine 21 mg Patch 1 PATCH TRANSDERMA (18:46)
[2023-01-08] MEDS: oxyCODONE-APAP 5-325 mg Tablet 2 TAB PO (20:15)
--- NOTE | 2023-01-08 20:50 | PC.NURSE ---
patient came to the nursing station in tears, very agitated. patient stated she had received a call to her room from a Hoda Forrester. Patient states that she does NOT want phone calls from this person to her room. junior technical writer assured pt that a note would be placed and charge nurse notified of her wishes. will continue to monitor.
[2023-01-08] MEDS: hyDROXYzine 25 mg Capsule PO (20:58)
[2023-01-08] MEDS: acetaminophen 500 mg Tablet 1000 MG PO (20:58)
[2023-01-08] MEDS: HYDROmorphone 1 mg/mL INJ 1 mL IVP (22:06)
[2023-01-09] VITALS (9 sets, daily range): BP systolic 121–130; BP diastolic 69–80; PULSE 76–78; RESP 16–18; TEMP 36.7–36.9; O2SAT 93–97
[2023-01-09] MEDS: oxyCODONE-APAP 5-325 mg Tablet 2 TAB PO ×3 (00:41→08:47)
[2023-01-09] MEDS: duloxetine 30 MG, duloxetine 60 MG 90 MG PO (00:43)
[2023-01-09] MEDS: HYDROmorphone 1 mg/mL INJ 1 mL IVP ×2 (02:46→06:45)
[2023-01-09 05:39] LABS: Hematocrit 38.4 % (36-47); Mean Corpuscular HGB Conc 32.6 g/dL (30-55); Mean Corpuscular Hemoglobin 29.7 pg (27-33); Mean Corpuscular Volume 91.2 fl (85-98); Mean Platelet Volume 10.9 fL (7.4-10.4); Platelet Count 319 10^3/cmm (157-399); Red Blood Count 4.21 10^6/uL (3.85-5.65); Red Cell Distribution Width 12.9 % (12.1-15.1); White Blood Count 12.66 10^3/uL (3.29-11.43)
[2023-01-09] MEDS: enoxaparin 40 mg/0.4 mL Syringe SUBCUT (05:40)
[2023-01-09] MEDS: dextrose 5%-lactated ringers 1,000 ML 125 ML IV (05:40)
[2023-01-09] MEDS: gabapentin 300 mg Capsule PO (08:46)
[2023-01-09] MEDS: docusate sodium 100 mg Capsule PO (08:46)
[2023-01-09] MEDS: nicotine 21 mg Patch 1 PATCH TRANSDERMA (08:51)
--- NOTE | 2023-01-09 10:20 | PC.CHAP ---
Pastoral Care Encounter/Spiritual Assessment Type of Contact [] Declined magnesium mill operator visit [] Patient/Family/Request visit [] Outpatient visit [] Follow-up visit [] Physician referral [] Code/Alert [x] Routine visit [] Staff referral [] Actively dying [] Patient sleeping [] Family support [] [] Out of room [] Palliative care [] [] Receiving care in room [] Pre-surgical visit [] Trauma [] Long length of stay [] ICU visit [] Other: Relational/Emotional Strength [x] Patient feels connected with others/family/visitors/staff [] Distress [] Loneliness/isolation [] Abandonment Spirituality of Patient [x] Person of Chanel [] Attends Holiness of their Chanel [x] Believes in Prayer [] Reads Bible or Sabianist materials [] There are Spiritual issues to be addressed Law Researcher Interventions [x] Prayer [x] Active listening [] Non-anxious presence [x] Spiritual/emotional support [] Crisis/trauma care [] Spiritual counseling [] Bereavement support [] Provided bereavement packet [] Provided Bible/devotional materials [] Provided toy/stuffed animal, coloring book to patient or family member [] Provided Communion [] Anointing/[place] [] Salvation [x] Completed spiritual assessment [] Other: Impact on Illness or Injury [] Angry [] Fearful [] Anxious [] Often cries [] Exhaustion [] Unable to work [] Unable to attend zoroastrian [] Unable to walk/stand [] Unable to read [] Unable to drive [] Unable to eat/drink [] Unable to sleep [] Unable to be with family [] Patient intubated [] Other: Summary Time spent with patient 5 min
[2023-01-09] MEDS: ibuprofen 800 mg tablet PO (11:17)
--- NOTE | 2023-01-09 13:15 | PM.OBGYPN ---
[facility] [place] [facility] Subjective Subjective: Interval history: POD #1 LIU c/o mild incisional pain eating, voiding, ambulating well states wants to go home Vitals/I&O/Wt Last Vital Signs Temp 98.0 F 01/09/23 12:37 Pulse 76 01/09/23 12:37 Resp 18 01/09/23 12:37 BP 128/69 01/09/23 12:37 Pulse Ox 94 01/09/23 12:37 O2 Del Method Room Air 01/09/23 11:24 O2 Flow Rate 6 01/08/23 09:44 01/09/23 01/09/23 01/09/23 06:59 14:59 22:59 Intake Total 941.667 / 4519.500 1343.75 / 1343.75 Output Total 850 / 2905 900 / 900 Balance 91.667 / 1614.500 443.75 / 443.75 Physical Exam Narrative: Comfortable, awake, alert Afebrile, VS normal Lungs: clear Cor: RRR Abd: soft, nondistended, nontender Wound clean and dry Ext: normal Urinary Catheter Management: Latex Free: Cath Placed During This Visit: yes Urinary Catheter Date of Insertion: 01/08/23 Urinary Catheter Time of Insertion: 07:35 Data 01/09/23 04:55 A&P Assessment and plan (1) S/P abdominal hysterectomy: POD #1 total abdominal hysterectomy Doing well Plan discharge home Instructions / precautions given Call / return if fever, chills, nausea, vomiting, pain, bleeding F/u in one week Attestations Medical Necessity Statement*: patient is postop day #1 total abdominal hysterectomy, plan discharge today Coding Level of Care Code Acute Code for Chg Fwd Diagnoses S/P abdominal hysterectomy Z90.710 Time Spent (min) 20
--- NOTE | 2023-01-09 22:19 | P.DS_ITS ---
Discharge Providers [employer] Date of Admission: 01/08/23 15:32 Date of Discharge: 01/09/23 Attending Provider at Admission: Shamir Jorge MD Attending Provider at Discharge: Shamir Jorge MD Consults: none Primary [employer]: Shamir Jorge MD Primary Care Provider: Miladis Diaz DO Diagnoses at Discharge Discharge Diagnosis (1) S/P abdominal hysterectomy: Details from hospital stay: patient did well s/p LIU Status: Acute Reason for Visit Reason for Visit: 48120 N92.0 Hospital Course Hospital Course patient did well following LIU eating, voiding, ambulating well patient was discharged on POD #1 Physical Exam Const: COMMON NORMALS: no acute distress, average body habitus, patient oriented x3 and alert Resp: COMMON NORMALS: normal respiratory effort and clear to auscultation bilaterally AUSCULTATION: clear to auscultation bilaterally Cardio: COMMON NORMALS: regular rate and regular rhythm RATE: regular rate RHYTHM: regular rhythm GI: COMMON NORMALS: Normal to inspection, nondistended, normoactive bowel sounds present, Soft to palpation and non-tender PALPATION: Yes Soft to palpation OTHER: wound clean and dry Neuro: COMMON NORMALS: patient oriented x3 SENSORIUM/ORIENTATION: Yes alert Urinary Catheter Management: Latex Free: Cath Placed During This Visit: yes Urinary Catheter Date of Insertion: 01/08/23 Urinary Catheter Time of Insertion: 07:35 History History History 0 Term 0 Miscarriages/Ectopic Living Children Discharge Data Studies Completed and Pending Pending at discharge Category Date Time Status Pathology: Surgical [PTH] Routine Pth 01/08/23 09:08 Received Laboratory Results WBC 12.66 10^3/uL (3.29-11.43) H 01/09/23 04:55 RBC 4.21 10^6/uL (3.85-5.65) 01/09/23 04:55 Hgb 12.50 g/dL (11.27-16.99) 01/09/23 04:55 Hct 38.4 % (36-47) 01/09/23 04:55 MCV 91.2 fl (85-98) 01/09/23 04:55 MCH 29.7 pg (27-33) 01/09/23 04:55 MCHC 32.6 g/dL (30-55) 01/09/23 04:55 RDW 12.9 % (12.1-15.1) 01/09/23 04:55 Plt Count 319 10^3/cmm (157-399) 01/09/23 04:55 MPV 10.9 fL (7.4-10.4) H 01/09/23 04:55 Urine HCG, Qual Negative (Negative) 01/08/23 06:04 Vitals Last Vital Signs Temp 98.0 F 01/09/23 12:37 Pulse 76 01/09/23 12:37 Resp 18 01/09/23 12:37 BP 128/69 01/09/23 12:37 Pulse Ox 94 01/09/23 12:37 O2 Del Method Room Air 01/09/23 11:24 O2 Flow Rate 6 01/08/23 09:44 Discharge Plan Discharge Patient Disposition: Home Condition: Stable Prescriptions: New Percocet 7.5-325 mg tablet 1 tab PO Q8H PRN (Reason: pain) Qty: 20 0RF Continued gabapentin 300 mg capsule 300 mg PO TID Dose Instruction: TAKE ONE CAPSULE BY MOUTH TWICE DAILY FOR chronic pain acetaminophen [Tylenol Extra Strength] 500 mg tablet 1,000 mg PO Q6H PRN (Reason: Pain) duloxetine 60 mg capsule,delayed release(DR/EC) 60 mg PO DAILY Qty: 60 2RF Rx Instructions: To be taken with 30 mg for total of 90 mg. duloxetine 30 mg capsule,delayed release(DR/EC) 30 mg PO DAILY Qty: 30 2RF ibuprofen 200 mg tablet 800 mg PO DAILY PRN (Reason: Pain) naproxen [Naprosyn] 500 mg tablet 500 mg PO BID PRN (Reason: pain) Qty: 20 0RF trazodone 100 mg tablet 100 mg PO QPM hydroxyzine HCl 25 mg tablet 25 mg PO Q6H PRN (Reason: anxiety) Qty: 14 0RF Discharge Orders: Discharge Order (Routine); Ordered 01/09/23 Ordered By: Shamir Jorge Referrals: Shamir Jorge MD [Physician] - 01/13/23 12:45 pm () Discharge Diet: Usual diet Discharge Activity: Increase activity as tolerated Patient Instructions: Oxycodone/Acetaminophen (By mouth), Hysterectomy (DC), O pioid Safety Discharge Attestations [employer] Time Spent in Discharge Care*: less than 30 min Specific Discharge Activities: Specific discharge activities: educating patient and documenting/other paperwork Coding Level of Care Code Acute Code for Chg Fwd Diagnoses S/P abdominal hysterectomy Z90.710 Time Spent (min) 20
== END 2023-01-09 12:37 | disposition home or self-care (01) | DRG 743 ==
LOC: MEDSURG 15:33
PROVIDERS: Anesthesiology; Admitting Provider Obstetrics & Gynecology; PCP Family Medicine; Visit Provider Obstetrics & Gynecology
PROC: 0UT90ZZ Resection of Uterus, Open Approach (ICD-10-PCS; CPT 58150; principal; 2023-01-08 07:00)
DX: N92.0 Excessive and frequent menstruation with regular cycle (principal); N83.8 Other noninflammatory disorders of ovary, fallopian tube and broad ligament; Z79.891 Long term (current) use of opiate analgesic
CPT/HCPCS: 36415; 51702; 81025; 84703; 85027; 88307; 96372; J1100; J1170; J1580; J1650; J2405; J2704; J2710; J3010; J3490; J7030; J7121

== ENCOUNTER 2023-06-25 17:17 | Outpatient (CLI) | payer SELFPAY ==
--- NOTE | 2023-06-25 17:29 | XR_ITS ---
WS: [id number] Exam: XR foot LT min 3V* [id number] Date/Time of Exam: 06/25/2023 5:33 PM Reason For Exam: Left foot pain No acute fracture or dislocation. Old distal second third and fourth metatarsal fractures noted. Norm al soft tissues. Old lower fibular fracture. No soft tissue foreign bodies. IMPRESSION1. No acute fracture. 2. Old fractures of the foot and ankle as noted above.
== END 2023-06-25 17:18 | disposition home or self-care (01) ==
PROVIDERS: PCP Family Medicine; Visit Provider Family Medicine
DX: M79.672 Pain in left foot (principal)
CPT/HCPCS: 73630

== ENCOUNTER 2023-09-15 10:42 | Emergency (ER) | payer OTHER, MEDICAID, SELFPAY ==
[2023-09-15 10:48] VITALS: BP 136/92; PULSE 85; RESP 16; TEMP 36.7; O2SAT 98; BMI 43.4
[2023-09-15 11:05] LABS: Basophils % 0.4 %; Eosinophils % 0.2 %; Hematocrit 43.7 % (36-47); Lymphocytes # 1.4 10^3/uL (0.8-4.8); Lymphocytes % 32.1 %; Mean Corpuscular HGB Conc 33.6 g/dL (30-55); Mean Corpuscular Hemoglobin 30.4 pg (27-33); Mean Corpuscular Volume 90.5 fl (85-98); Mean Platelet Volume 11.1 fL (7.4-10.4); Monocytes # 0.4 10^3/uL (0.2-0.9); Monocytes % 9.1 %; Nucleated Red Blood Cells % 0 %; Platelet Count 244 10^3/cmm (157-399); Red Blood Count 4.83 10^6/uL (3.85-5.65); Red Cell Distribution Width 12.4 % (12.1-15.1); White Blood Count 4.49 10^3/uL (3.29-11.43)
[2023-09-15 11:25] LABS: Alanine Aminotransferase 84 U/L (0-33); Albumin Level 3.8 g/dL (3.5-5.2); Alkaline Phosphatase 126 U/L (35-105); Anion Gap 17.6 (5-19); Aspartate Amino Transferase 71 U/L (0-32); Blood Urea Nitrogen 9 mg/dL (6-20); Calcium 9.1 mg/dL (8.5-10.5); Carbon Dioxide 18 mmol/L (22-29); Chloride 108 mmol/L (98-107); Creatinine Clr Calc Pharmacy 130.6225; Globulin 3.3 g/dL (1.3-4.6); Glomerular Filtration Rate 98.3 mL/min (90-130); Glucose 99 mg/dL (65-115); Lipase 27 U/L (13-60); Osmolality Calculated 289 mOsm/kg (285-295); Potassium 3.6 mmol/L (3.5-5.1); Sodium 140 mmol/L (136-145); Total Bilirubin 0.2 mg/dL (0.15-1.2); Total Protein 7.1 g/dL (6.6-8.7)
[2023-09-15 12:26] VITALS: BP 131/72; PULSE 70; RESP 18; O2SAT 100
--- NOTE | 2023-09-15 12:40 | W.ED.NAVMDI ---
HPI - Nausea/Vomiting/Diarrhea General: Chief complaint: Nausea/Vomiting/Diarrhea Stated complaint: n/v, diarrhea, abd pain Time Seen by Provider: 09/15/23 12:22 History of Present Illness: 32-year-old female with history of obesity and bipolar disorder who presents to the emergency room with nausea vomiting and diarrhea for the past several days. She has been attempting to take some of her mother's Zofran tablets. She does not have dissolvable pills and she has not been to keep it down. She also has been attempting to take some electrolytes and that has not been staying down either. She has been having epigastric abdominal pain. She said it was very severe last night. She was having fevers yesterday. She was sent home from work she says. She does have a history of cholecystectomy. She says it hurts like it did before she had her gallbladder out. Review of Systems Narrative: Constitutional symptoms: Negative except as documented in HPI. Skin symptoms: Negative except as documented in HPI. Eye symptoms: Negative except as documented in HPI. ENMT symptoms: Negative except as documented in HPI. Respiratory symptoms: Negative except as documented in HPI. Cardiovascular symptoms: Negative except as documented in HPI. Gastrointestinal symptoms: Negative except as documented in HPI. Genitourinary symptoms: Negative except as documented in HPI. Musculoskeletal symptoms: Negative except as documented in HPI. Neurologic symptoms: Negative except as documented in HPI. Psychiatric symptoms: Negative except as documented in HPI. Endocrine symptoms: Negative except as documented in HPI. [facility] ED PFSH: Medical History (Updated 09/15/23 @ 13:22 by Olamide Osuna MD) Bipolar 1 disorder No pertinent past medical history neghx: htn,dm,thyroid,dvt/pe PCP: Dr. Diaz Menorrhagia Ankle pain Fracture of fourth metatarsal bone of left foot Fracture of third metatarsal bone of left foot Surgical History (Updated 02/17/23 @ 12:49 by Cecile Hernandez APN, [place]) [place] teeth extracted History of hysterectomy (~01/08/23) [facility] with removal of a right paratubal cyst performed by Dr. Jorge at [facility] for severe chronic menorrhagia. Benign pathology History of cholecystectomy History of tonsillectomy Family History Family/Other Hyperlipidemia maternal Mother Hypertension Grandmother Stroke maternal Ovarian cancer maternal Uterine cancer maternal Denies family history of Colon cancer Diabetes Heart disease Breast cancer Thyroid condition Social History Substance/Drug Use: former Date of last use: Marijuana- 16 yrs ago. Physical Exam Narrative: EXAM NARRATIVE: General: Alert, no acute distress. Skin: Warm, dry. Head: Normocephalic, atraumatic. Neck: Supple, trachea midline. Eye: Extraocular movements are intact. Ears, nose, mouth and throat: Poor dentition, dry oral mucosa. Cardiovascular: Regular, Normal peripheral perfusion. Respiratory: Lungs are clear to auscultation, respirations are non-labored, breath sounds are equal, Symmetrical chest wall expansion. Gastrointestinal: Soft, Nontender, Non distended, Normal bowel sounds. Musculoskeletal: Normal ROM, no deformity. Neurological: Alert and oriented, No focal neurological deficit observed. Psychiatric: Cooperative, appropriate mood & affect. Course Vital Signs: Vital signs: Vital Signs Temperature 98.1 F 09/15/23 10:48 Pulse Rate 62 09/15/23 13:12 Respiratory Rate 18 09/15/23 13:12 Blood Pressure 116/74 09/15/23 13:12 Pulse Oximetry 100 09/15/23 13:12 Oxygen Delivery Me thod Room Air 09/15/23 13:12 MDM - Nausea/Vomiting/Diarrhea Medical Decision Making Medical decision making: Differential diagnosis including but not limited to and based on the above HPI, review of systems and physical exam: Patient likely has a viral gastroenteritis. However gone to check liver enzymes. Renal function for dehydration. And urinalysis given that she has been having fevers. Orders placed to evaluate differential diagnosis based on the above differential, HPI and physical exam Lab Review: Laboratory results were reviewed and interpreted by myself the emergency room physician. Lab work is fairly unremarkable. Her bicarb is a bit decreased 18 likely from dehydration. White count is 4.5. Hemoglobin 14.7. BUN and creatinine are 9 and 0.7. Urine does not show any signs of infection I reviewed the patient's medical record. Reexamination: Patient says she feels somewhat better. No increased work of breathing. No altered mental status. No focal motor deficits. Assessment and plan: Viral gastroenteritis Dehydration - Discharged home - Discussed plan with patient. Answered any questions. - Evaluation and treatment of this problem were appropriate in the emergency setting. Lab Data 09/15/23 10:57 09/15/23 10:57 Laboratory Results WBC 4.49 10^3/uL (3.29-11.43) 09/15/23 10:57 RBC 4.83 10^6/uL (3.85-5.65) 09/15/23 10:57 Hgb 14.70 g/dL (11.27-16.99) 09/15/23 10:57 Hct 43.7 % (36-47) 09/15/23 10:57 MCV 90.5 fl (85-98) 09/15/23 10:57 MCH 30.4 pg (27-33) 09/15/23 10:57 MCHC 33.6 g/dL (30-55) 09/15/23 10:57 RDW 12.4 % (12.1-15.1) 09/15/23 10:57 Plt Count 244 10^3/cmm (157-399) 09/15/23 10:57 MPV 11.1 fL (7.4-10.4) H 09/15/23 10:57 Neut % (Auto) 58.0 % 09/15/23 10:57 Lymph % (Auto) 32.1 % 09/15/23 10:57 [place] % (Auto) 9.1 % 09/15/23 10:57 Eos % (Auto) 0.2 % 09/15/23 10:57 Baso % (Auto) 0.4 % 09/15/23 10:57 Neut # (Auto) 2.60 10^3/uL (1.8-7.7) 09/15/23 10:57 Lymph # (Auto) 1.4 10^3/uL (0.8-4.8) 09/15/23 10:57 [place] # (Auto) 0.4 10^3/uL (0.2-0.9) 09/15/23 10:57 Eos # (Auto) 0.0 10^3/uL (0.0-0.8) 09/15/23 10:57 Baso # (Auto) 0.0 10^3/uL (0.0-0.1) 09/15/23 10:57 Nucleated RBC % (auto) 0 % 09/15/23 10:57 Nucleated RBCs # 0.0 /100WBC 09/15/23 10:57 Sodium 140 mmol/L (136-145) 09/15/23 10:57 Potassium 3.6 mmol/L (3.5-5.1) 09/15/23 10:57 Chloride 108 mmol/L (98-107) H 09/15/23 10:57 Carbon Dioxide 18 mmol/L (22-29) L 09/15/23 10:57 Anion Gap 17.6 (5-19) 09/15/23 10:57 BUN 9 mg/dL (6-20) 09/15/23 10:57 Creatinine 0.7 mg/dL (0.5-0.9) 09/15/23 10:57 GFR Calculation 98.3 mL/min (90-130) 09/15/23 10:57 Glucose 99 mg/dL (65-115) 09/15/23 10:57 Calculated Osmolality 289 mOsm/kg (285-295) 09/15/23 10:57 Calcium 9.1 mg/dL (8.5-10.5) 09/15/23 10:57 Total Bilirubin 0.2 mg/dL (0.15-1.2) 09/15/23 10:57 AST 71 U/L (0-32) H 09/15/23 10:57 ALT 84 U/L (0-33) H 09/15/23 10:57 Alkaline Phosphatase 126 U/L (35-105) H 09/15/23 10:57 Total Protein 7.1 g/dL (6.6-8.7) 09/15/23 10:57 Albumin 3.8 g/dL (3.5-5.2) 09/15/23 10:57 Globulin 3.3 g/dL (1.3-4.6) 09/15/23 10:57 Lipase 27 U/L (13-60) 09/15/23 10:57 Urine Color Yellow (Yellow) 09/15/23 12:23 Urine Appearance Sl hazy (CLEAR) A 09/15/23 12:23 Urine pH 5 (5-7) 09/15/23 12:23 Ur Specific [place] 1.005 (1.005-1.030) 09/15/23 12:23 Urine Protein Neg (Negative) 09/15/23 12:23 Urine Glucose (UA) Norm (Normal) 09/15/23 12:23 Urine Ketones Negative (Negative) 09/15/23 12:23 Urine Blood 2+ (Negative) H 09/15/23 12:23 Urine Nitrate Negative (Negative) 09/15/23 12:23 Urine Bilirubin Neg (Negative) 09/15/23 12:23 Urine Urobilinogen Norm mg/dL (Negative) 09/15/23 12:23 Ur Leukocyte Esterase Negative (Negative) 09/15/23 12:23 Amorphous Sediment Not Reportable 09/15/23 12:23 No radiology studies performed this visit Discharge Plan Discharge Patient Disposition: Home Clinical Impression: Gastroenteritis, Dehydration Condition: Stable Prescriptions: New promethazine 25 mg suppository 25 mg HI Q6H PRN (Reason: nausea and vomiting) Qty: 12 0RF ondansetron 8 mg tablet,disintegrating 8 mg PO .q6 PRN (Reason: nausea and vomiting) Qty: 14 0RF diclofenac sodium 50 mg tablet,delayed release (DR/EC) 50 mg PO Q12H Qty: 20 0RF No Action gabapentin 300 mg capsule 300 mg PO TID Dose Instruction: TAKE ONE CAPSULE BY MOUTH TWICE DAILY FOR chronic pain oxycodone-acetaminophen [Percocet] 5-325 mg tablet 1 tab PO Q8H PRN (Reason: pain) 5 Days Qty: 20 0RF oxycodone-acetaminophen [Percocet] 5-325 mg tablet 1 tab PO Q8H PRN (Reason: pain) 7 Days Qty: 14 0RF acetaminophen [Tylenol Extra Strength] 500 mg tablet 1,000 mg PO Q6H PRN (Reason: Pain) duloxetine 60 mg capsule,delayed release(DR/EC) 60 mg PO DAILY Qty: 60 2RF Rx Instructions: To be taken with 30 mg for total of 90 mg. duloxetine 30 mg capsule,delayed release(DR/EC) 30 mg PO DAILY Qty: 30 2RF ibuprofen 200 mg tablet 800 mg PO DAILY PRN (Reason: Pain) naproxen [Naprosyn] 500 mg tablet 500 mg PO BID PRN (Reason: pain) Qty: 20 0RF trazodone 100 mg tablet 100 mg PO QPM Percocet 7.5-325 mg tablet 1 tab PO Q8H PRN (Reason: pain) Qty: 20 0RF hydroxyzine HCl 25 mg tablet 25 mg PO Q6H PRN (Reason: anxiety) Qty: 14 0RF Discharge Orders: Discharge ED (Routine); Ordered 09/15/23 Ordered By: Olamide Osuna Referrals: Miladis Diaz DO [Primary Care Provider] - 4-7 days Discharge Diet: Advance as tolerated Discharge Activity: Increase activity as tolerated Patient Instructions: [place] Diet - Adult, Gastroenteritis (ED) Activity Restrictions/Additional Instructions: Thank you for choosing [facility] for your healthcare needs today. Please realize this is an emergency room and that we are providing you with a medical screening exam and this may not be complete and all inclusive of all the testing and or work up that you may need to determine your ailment or severity of your illness. You have been screened and evaluated and felt safe for discharge. Health conditions do change or evolve sometimes and as such it is important that you follow up with your Primary Doctor to be re checked, 3-5 days is a general good time frame for follow up. You are always welcome to return to the ED for re assessment if your symptoms are worsening or you have new concerns Coding Level of Care Code ED E/M Engineer for Lg Diaz
[2023-09-15] MEDS: sodium chloride 0.9% 1,000 ML 999 ML IV (13:09)
[2023-09-15] MEDS: ondansetron 2 mg/ML SDV 2 mL 8 MG IVP (13:10)
[2023-09-15] MEDS: ketorolac 30 mg/mL INJ IVP (13:10)
[2023-09-15 13:12] VITALS: BP 116/74; PULSE 62; RESP 18; O2SAT 100
[2023-09-15 13:18] LABS: Bilirubin Urine Neg (Negative); Blood Urine 2+ (Negative); Glucose Urine UA Norm (Normal); Ketones Urine Negative (Negative); Leukocyte Esterase Urine Negative (Negative); Nitrate Urine Negative (Negative); Protein Urine Neg (Negative); Specific Gravity, Urine 1.005 (1.005-1.030); Urine Appearance SL Hazy (CLEAR); Urine Color Yellow (Yellow); Urobilinogen Urine Norm (Negative); pH Urine 5 (5-7)
[2023-09-15 13:28] LABS: Add Urine Culture? No; Bacteria Urine 1+ /hpf; RBC Urine 0-4 /hpf (0-2); Squamous Epithelial Cell Urine 0-4 /hpf (0-5); WBC Urine RARE /hpf (0-5)
[2023-09-15 13:30] VITALS: BP 109/73; PULSE 94; RESP 17; O2SAT 98
[2023-09-15 14:00] VITALS: BP 109/73; PULSE 65; O2SAT 100
== END 2023-09-15 14:23 | disposition home or self-care (01) ==
PROVIDERS: Emergency Medicine; Emergency Provider Emergency Medicine; PCP Family Medicine
DX: K52.9 Noninfective gastroenteritis and colitis, unspecified (principal); E86.0 Dehydration
CPT/HCPCS: 36415; 80053; 81001; 83690; 85025; 96361; 96374; 96375; 99284; J1885; J2405; J7030